=== PATIENT | female | born 1945 | race Caucasian/White ===

== ENCOUNTER 2017-02-16 17:34 | Emergency (ER) | payer MEDICARE, BC ==
[2017-02-16] MEDS ORDERED: SODIUM CHLORIDE 0.9% 1,000 ML IV STA (18:15)
--- NOTE | 2017-02-16 18:18 | ED ---
URI HPI - General Chief Complaint: Upper Respiratory Infection Stated Complaint: congestion Time Seen by Provider: 02/16/17 18:00 Source: patient, RN notes reviewed Mode of arrival: ambulatory Limitations: no limitations - History of Present Illness Initial Comments: This is a 71-year-old female who states she's had upper respiratory type symptoms with a persistent cough for the past 3 weeks denies any chest pain she has had occasional chest tightness. She is a former smoker who quit about 15- 20 years ago. She denies any overt fevers chills sweats he has a cough with some mail phlegm some exertional dyspnea. No other complaints at this time. He did not have any chest tightness at this time. MD Complaint: cough, nasal congestion, other - Related Data Home Medications Medication Instructions Recorded Confirmed Atorvastatin [Lipitor] 40 mg PO HS 02/16/17 02/16/17 Citalopram Hydrobromide [CeleXA] 20 mg PO HS 02/16/17 02/16/17 Dicyclomine [Bentyl] 20 mg PO TID PRN 02/16/17 02/16/17 Omeprazole [PriLOSEC] 20 mg PO HS 02/16/17 02/16/17 Pioglitazone HCl [Actos] 30 mg PO HS 02/16/17 02/16/17 Previous Rx's Medication Instructions Recorded Ipratropium/Albuterol Sulfate 2 puff INHALATION QID PRN #1 02/16/17 [Combivent Respimat Inhaler] inhaler Levofloxacin [Levaquin] 500 mg PO DAILY #9 tab 02/16/17 predniSONE 20 mg PO BID #10 tab 02/16/17 Allergies Allergy/AdvReac Type Severity Reaction Status Date / Time No Known Allergies Allergy Verified 02/16/17 18:38 Review of Systems ROS Statement: Those systems with pertinent positive or pertinent negative responses have been documented in the HPI. ROS Other: All systems not noted in ROS Statement are negative. Past Medical History Past Medical History: Diabetes Mellitus, Hyperlipidemia, Hypertension Additional Past Medical History / Comment(s): IBS History of Any Multi-Drug Resistant Organisms: None Reported Past Surgical History: Orthopedic Surgery, Tubal Ligation Past Psychological History: No Psychological Hx Reported Smoking Status: Never smoker Past Alcohol Use History: None Reported Past Drug Use History: None Reported General Exam - General Exam Comments Initial Comments: This is a well-developed well-nourished awake alert oriented 3 female Limitations: no limitations General appearance: alert, in no apparent distress Head exam: Present: atraumatic, normocephalic, normal inspection Eye exam: Present: normal appearance, PERRL, EOMI. Absent: scleral icterus, conjunctival injection, periorbital swelling ENT exam: Present: other (Bogginess and mucosa TMs are within normal limits) Neck exam: Present: normal inspection. Absent: tenderness, meningismus, lymphadenopathy Respiratory exam: Present: normal lung sounds bilaterally. Absent: respiratory distress, wheezes, rales, rhonchi, stridor Cardiovascular Exam: Present: regular rate, normal rhythm, normal heart sounds. Absent: systolic murmur, diastolic murmur, rubs, gallop, clicks GI/Abdominal exam: Present: soft, normal bowel sounds. Absent: distended, tenderness, guarding, rebound, rigid Extremities exam: Present: normal inspection, full ROM, normal capillary refill. Absent: tenderness, pedal edema, joint swelling, calf tenderness Back exam: Present: normal inspection Neurological exam: Present: alert, oriented X3, CN II-XII intact Psychiatric exam: Present: normal affect, normal mood Skin exam: Present: warm, dry, intact, normal color. 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 She does not want to be admitted today I believe she is a candidate for outpatient treatment. We did discuss her low magnesium and potassium levels. She'll be discharged home with her supplementation as well as oral antibiotics and inhaler. She is a follow-up with her doctor and return when necessary - Lab Data Result diagrams: 02/16/17 18:35 02/16/17 18:35 Lab Results 02/16/17 02/16/17 02/16/17 Range/Units 18:35 18:35 18:35 WBC 8.1 (3.8-10.6) k/uL RBC 4.37 (3.80-5.40) m/uL Hgb 13.3 (11.4-16.0) gm/dL Hct 40.8 (34.0-46.0) % MCV 93.3 (80.0-100.0) fL MCH 30.4 (25.0-35.0) pg MCHC 32.6 (31.0-37.0) g/dL RDW 12.9 (11.5-15.5) % Plt Count 359 (150-450) k/uL Neutrophils % 59 % Lymphocytes % 27 % Monocytes % 6 % Eosinophils % 4 % Basophils % 1 % Neutrophils # 4.8 (1.3-7.7) k/uL Lymphocytes # 2.2 (1.0-4.8) k/uL Monocytes # 0.5 (0-1.0) k/uL Eosinophils # 0.3 (0-0.7) k/uL Basophils # 0.0 (0-0.2) k/uL PT (9.0-12.0) sec INR (<1.1) APTT (22.0-30.0) sec D-Dimer (<0.60) mg/L FEU Sodium 138 (137-145) mmol/L Potassium 3.9 (3.5-5.1) mmol/L Chloride 102 (98-107) mmol/L Carbon Dioxide 26 (22-30) mmol/L Anion Gap 10 mmol/L BUN 15 (7-17) mg/dL Creatinine 0.85 (0.52-1.04) mg/dL Est GFR (MDRD) Af Amer >60 (>60 ml/min/1.73 sqM) Est GFR (MDRD) Non-Af >60 (>60 ml/min/1.73 sqM) Glucose 125 H (74-99) mg/dL Calcium 9.7 (8.4-10.2) mg/dL Magnesium 1.4 L (1.6-2.3) mg/dL Total Bilirubin 0.6 (0.2-1.3) mg/dL AST 24 (14-36) U/L ALT 26 (9-52) U/L Alkaline Phosphatase 86 (38-126) U/L Total Creatine Kinase 177 H (30-135) U/L CK-MB (CK-2) 2.5 H* (0.0-2.4) ng/mL CK-MB (CK-2) Rel Index 1.4 Troponin I <0.012 (0.000-0.034) ng/mL NT-Pro-B Natriuret Pep pg/mL Total Protein 7.3 (6.3-8.2) g/dL Albumin 4.3 (3.5-5.0) g/dL Influenza Type A RNA (Not Detectd) Influenza Type B (PCR) (Not Detectd) 02/16/17 02/16/17 02/16/17 Range/Units 18:35 18:35 18:35 WBC (3.8-10.6) k/uL RBC (3.80-5.40) m/uL Hgb (11.4-16.0) gm/dL Hct (34.0-46.0) % MCV (80.0-100.0) fL MCH (25.0-35.0) pg MCHC (31.0-37.0) g/dL RDW (11.5-15.5) % Plt Count (150-450) k/uL Neutrophils % % Lymphocytes % % Monocytes % % Eosinophils % % Basophils % % Neutrophils # (1.3-7.7) k/uL Lymphocytes # (1.0-4.8) k/uL Monocytes # (0-1.0) k/uL Eosinophils # (0-0.7) k/uL Basophils # (0-0.2) k/uL PT 10.3 (9.0-12.0) sec INR 1.0 (<1.1) APTT 23.5 (22.0-30.0) sec D-Dimer 0.55 (<0.60) mg/L FEU Sodium (137-145) mmol/L Potassium (3.5-5.1) mmol/L Chloride (98-107) mmol/L Carbon Dioxide (22-30) mmol/L Anion Gap mmol/L BUN (7-17) mg/dL Creatinine (0.52-1.04) mg/dL Est GFR (MDRD) Af Amer (>60 ml/min/1.73 sqM) Est GFR (MDRD) Non-Af (>60 ml/min/1.73 sqM) Glucose (74-99) mg/dL Calcium (8.4-10.2) mg/dL Magnesium (1.6-2.3) mg/dL Total Bilirubin (0.2-1.3) mg/dL AST (14-36) U/L ALT (9-52) U/L Alkaline Phosphatase (38-126) U/L Total Creatine Kinase (30-135) U/L CK-MB (CK-2) (0.0-2.4) ng/mL CK-MB (CK-2) Rel Index Troponin I (0.000-0.034) ng/mL NT-Pro-B Natriuret Pep 56 pg/mL Total Protein (6.3-8.2) g/dL Albumin (3.5-5.0) g/dL Influenza Type A RNA Not Detected (Not Detectd) Influenza Type B (PCR) Not Detected (Not Detectd) - EKG Data -: EKG Interpreted by Me EKG shows normal: sinus rhythm, axis, intervals, QRS complexes, ST-T waves (EKG shows a rate of 77 OR interval 178 QRS duration 80 daily since QTC of 370/[address]-T wave changes. This is normal. EKG.) Rate: normal - Radiology Data Radiology results: report reviewed (I did review the imaging and reports are is some evidence of lower lobe infiltrate.), image reviewed Disposition Clinical Impression: Pneumonia, Bronchospasm Disposition: HOME SELF-CARE Condition: Good Instructions: Community Acquired Pneumonia (ED) Prescriptions: Ipratropium/Albuterol Sulfate [Combivent Respimat Inhaler] 2 puff INHALATION QID PRN #1 inhaler PRN Reason: Dyspnea Levofloxacin [Levaquin] 500 mg PO DAILY #9 tab predniSONE 20 mg PO BID #10 tab
[2017-02-16 18:55] LABS: Basophils % (A) 1 %; CH 30.4; CHCM 32.8; Eosinophils # (A) 0.3 k/uL (0-0.7); Eosinophils % (A) 4 %; HCT 40.8 % (34.0-46.0); HDW 2.26; HGB 13.3 gm/dL (11.4-16.0); Luc # (Auto) 0.21; Luc % (Auto) 3; Lymphocytes # (A) 2.2 k/uL (1.0-4.8); Lymphocytes % (A) 27 %; MCH 30.4 pg (25.0-35.0); MCHC 32.6 g/dL (31.0-37.0); MCV 93.3 fL (80.0-100.0); Monocytes # (A) 0.5 k/uL (0-1.0); Monocytes % (A) 6 %; Neutrophils # (A) 4.8 k/uL (1.3-7.7); Neutrophils % (A) 59 %; RBC 4.37 m/uL (3.80-5.40); RDW 12.9 % (11.5-15.5); WBC 8.1 k/uL (3.8-10.6); WBC (Perox) 8.08
--- NOTE | 2017-02-16 19:02 | XR ---
EXAMINATION TYPE: XR chest 2V DATE OF EXAM: 02/16/2017 6:57 PM COMPARISON: 12/20/2008 INDICATION: Difficulty breathing cough and congestion TECHNIQUE: Single frontal view of the chest is obtained. FINDINGS: The heart size is normal. The pulmonary vasculature is normal. Mild bibasilar infiltrates are present. Correlate for subsegmental atelectasis. Developing pneumonia could be considered. IMPRESSION: 1. Mild bibasilar infiltrates. Correlate for atelectasis or developing pneumonia
[2017-02-16 19:04] LABS: Partial Thromboplastin Time 23.5 sec (22.0-30.0); Prothrombin Time 10.3 sec (9.0-12.0)
[2017-02-16 19:08] LABS: ALT 26 U/L (9-52); AST 24 U/L (14-36); Alkaline Phosphatase 86 U/L (38-126); Anion Gap 10 mmol/L; Blood Urea Nitrogen 15 mg/dL (7-17); Calcium 9.7 mg/dL (8.4-10.2); Carbon Dioxide 26 mmol/L (22-30); Chloride 102 mmol/L (98-107); Glucose 125 mg/dL (74-99); Magnesium 1.4 mg/dL (1.6-2.3); Non-African American GFR(MDRD) >60 (>60 ml/min/1.73 sqM); Potassium 3.9 mmol/L (3.5-5.1); Sodium 138 mmol/L (137-145); Total Bilirubin 0.6 mg/dL (0.2-1.3); Total Protein 7.3 g/dL (6.3-8.2)
[2017-02-16 19:11] LABS: Creatine Kinase 177 U/L (30-135)
[2017-02-16 19:24] LABS: Troponin I <0.012 ng/mL (0.000-0.034)
[2017-02-16 19:30] LABS: Creatine Kinase MB 2.5 ng/mL (0.0-2.4)
[2017-02-16 20:02] VITALS: BP 143/64; PULSE 88; RESP 18; TEMP 99.2
[2017-02-16] MEDS ORDERED: LEVOFLOXACIN 750 MG TAB PO STA (20:23)
[2017-02-16] MEDS ORDERED: POTASSIUM CHLORIDE ER 20 MEQ TAB.ER PO STA (20:23)
== END 2017-02-16 20:50 | disposition home or self-care (01) ==
LOC: EC 17:34
DX: J18.9 Pneumonia, unspecified organism (principal); J98.01 Acute bronchospasm; E11.9 Type 2 diabetes mellitus without complications; E78.5 Hyperlipidemia, unspecified; K58.9 Irritable bowel syndrome, unspecified; I10 Essential (primary) hypertension; Z79.84 Long term (current) use of oral hypoglycemic drugs; Z79.899 Other long term (current) drug therapy
CPT/HCPCS: 36415; 71020; 80053; 82550; 82553; 83735; 83880; 84484; 85025; 85379; 85610; 85730; 87502; 93005; 96360; 96361; 99284

== ENCOUNTER 2017-02-27 16:32 | Emergency (ER) | payer MEDICARE, BC ==
[2017-02-27] MEDS ORDERED: NITROGLYCERIN OINT 1 INCH/GM PACKET TOPICAL STA (17:29)
[2017-02-27] MEDS ORDERED: ASPIRIN 81 MG CHEW PO STA (17:29)
[2017-02-27] MEDS ORDERED: KETOROLAC 60 MG/2 ML VIAL IVP STA ×2 (17:30→19:22)
--- NOTE | 2017-02-27 17:38 | ED ---
General Adult HPI - General Chief complaint: Chest Pain Stated complaint: chest pain Time Seen by Provider: 02/27/17 17:00 Source: patient, RN notes reviewed Mode of arrival: wheelchair Limitations: no limitations - History of Present Illness Initial comments: This is a 71-year-old female comes into the emergency department stating that she woke up yesterday with right-sided chest pain which radiated to her back. Patient states the pain was worse with deep inspiration or movement of her right arm. Patient states if she lies still in bed and just breathes normally she has no pain whatsoever. Patient denies any shortness of breath. Patient denies any fever or chills per patient denies any recent cough. Patient denies any calf pain. Patient denies any recent trips or travel. Patient states she has some swelling in her right leg more than normal. Patient denies any palpitations per patient denies abdominal pain patient denies nausea vomiting or diarrhea. Patient denies any lightheadedness dizziness or near syncopal episode. - Related Data Home Medications Medication Instructions Recorded Confirmed Atorvastatin [Lipitor] 40 mg PO HS 02/16/17 02/27/17 Citalopram Hydrobromide [CeleXA] 20 mg PO HS 02/16/17 02/27/17 Dicyclomine [Bentyl] 20 mg PO TID PRN 02/16/17 02/27/17 Omeprazole [PriLOSEC] 20 mg PO HS 02/16/17 02/27/17 Pioglitazone HCl [Actos] 30 mg PO HS 02/16/17 02/27/17 Allergies Allergy/AdvReac Type Severity Reaction Status Date / Time No Known Allergies Allergy Verified 02/27/17 17:48 Review of Systems ROS Statement: Those systems with pertinent positive or pertinent negative responses have been documented in the HPI. ROS Other: All systems not noted in ROS Statement are negative. Past Medical History Past Medical History: Diabetes Mellitus, Hyperlipidemia, Hypertension Additional Past Medical History / Comment(s): IBS History of Any Multi-Drug Resistant Organisms: None Reported Past Surgical History: Orthopedic Surgery, Tubal Ligation Past Psychological History: No Psychological Hx Reported Smoking Status: Never smoker Past Alcohol Use History: None Reported Past Drug Use History: None Reported General Exam - General Exam Comments Initial Comments: GENERAL: Patient is well-developed and well-nourished. Patient is nontoxic and well- hydrated and is in mild distress. ENT: Neck is soft and supple. No significant lymphadenopathy is noted. Oropharynx is clear. Moist mucous membranes. Neck has full range of motion without eliciting any pain. EYES: The sclera were anicteric and conjunctiva were pink and moist. Extraocular movements were intact and pupils were equal round and reactive to light. Eyelids were unremarkable. PULMONARY: Unlabored respirations. Good breath sounds bilaterally. No audible rales rhonchi or wheezing was noted. CARDIOVASCULAR: There is a regular rate and rhythm without any murmurs gallops or rubs. ABDOMEN: Soft and nontender with normal bowel sounds. No palpable organomegaly was noted. There is no palpable pulsatile mass. SKIN: Skin is clear with no lesions or rashes and otherwise unremarkable. NEUROLOGIC: Patient is alert and oriented x3. Cranial nerves II through XII are grossly intact. Motor and sensory are also intact. Normal speech, volume and content. Symmetrical smile. MUSCULOSKELETAL: Normal extremities with adequate strength and full range of motion. No lower extremity swelling or edema. No calf tenderness. LYMPHATICS: No significant lymphadenopathy is noted PSYCHIATRIC: Normal psychiatric evaluation. Normal interpersonal interactions appears functionally intact in deals appropriately with others. No signs of depression. No signs of anxiety. Limitations: no limitations Course Vital Signs 02/27/17 02/27/17 02/27/17 16:35 17:00 18:14 Temperature 100.6 F H 99.9 F H Pulse Rate 94 89 83 Respiratory 20 16 16 Rate Blood Pressure 156/74 116/72 151/65 O2 Sat by Pulse 96 100 98 Oximetry 02/27/17 02/27/17 19:01 19:17 Temperature Pulse Rate 93 89 Respiratory 16 16 Rate Blood Pressure 136/64 136/64 O2 Sat by Pulse 99 98 Oximetry Medical Decision Making - Medical Decision Making EKG shows normal sinus rhythm at 93 bpm NM interval is 178 QRS is 68 QT interval 340 QTC is 422 per patient's EKG shows no ST segment elevation or depression or T wave abnormalities are noted. chest x-ray and CAT scan showed no acute abnormality. Patient received Toradol felt considerably better. - Lab Data Result diagrams: 02/27/17 17:00 02/27/17 17:00 Lab Results 02/27/17 02/27/17 02/27/17 Range/Units 17:00 17:00 17:00 WBC 9.4 (3.8-10.6) k/uL RBC 4.43 (3.80-5.40) m/uL Hgb 13.7 (11.4-16.0) gm/dL Hct 40.5 (34.0-46.0) % MCV 91.5 (80.0-100.0) fL MCH 30.9 (25.0-35.0) pg MCHC 33.8 (31.0-37.0) g/dL RDW 13.0 (11.5-15.5) % Plt Count 274 (150-450) k/uL Neutrophils % 74 % Lymphocytes % 14 % Monocytes % 9 % Eosinophils % 1 % Basophils % 0 % Neutrophils # 6.9 (1.3-7.7) k/uL Lymphocytes # 1.3 (1.0-4.8) k/uL Monocytes # 0.8 (0-1.0) k/uL Eosinophils # 0.1 (0-0.7) k/uL Basophils # 0.0 (0-0.2) k/uL PT (9.0-12.0) sec INR (<1.1) APTT (22.0-30.0) sec D-Dimer (<0.60) mg/L FEU Sodium 137 (137-145) mmol/L Potassium 4.3 (3.5-5.1) mmol/L Chloride 104 (98-107) mmol/L Carbon Dioxide 21 L (22-30) mmol/L Anion Gap 12 mmol/L BUN 15 (7-17) mg/dL Creatinine 0.70 (0.52-1.04) mg/dL Est GFR (MDRD) Af Amer >60 (>60 ml/min/1.73 sqM) Est GFR (MDRD) Non-Af >60 (>60 ml/min/1.73 sqM) Glucose 159 H (74-99) mg/dL Calcium 9.6 (8.4-10.2) mg/dL Magnesium 1.6 (1.6-2.3) mg/dL Total Bilirubin 0.6 (0.2-1.3) mg/dL AST 19 (14-36) U/L ALT 25 (9-52) U/L Alkaline Phosphatase 97 (38-126) U/L Total Creatine Kinase 107 (30-135) U/L CK-MB (CK-2) 1.0 (0.0-2.4) ng/mL CK-MB (CK-2) Rel Index 0.9 Troponin I <0.012 (0.000-0.034) ng/mL Total Protein 7.0 (6.3-8.2) g/dL Albumin 4.1 (3.5-5.0) g/dL 02/27/17 02/27/17 Range/Units 17:00 17:00 WBC (3.8-10.6) k/uL RBC (3.80-5.40) m/uL Hgb (11.4-16.0) gm/dL Hct (34.0-46.0) % MCV (80.0-100.0) fL MCH (25.0-35.0) pg MCHC (31.0-37.0) g/dL RDW (11.5-15.5) % Plt Count (150-450) k/uL Neutrophils % % Lymphocytes % % Monocytes % % Eosinophils % % Basophils % % Neutrophils # (1.3-7.7) k/uL Lymphocytes # (1.0-4.8) k/uL Monocytes # (0-1.0) k/uL Eosinophils # (0-0.7) k/uL Basophils # (0-0.2) k/uL PT 10.1 (9.0-12.0) sec INR 1.0 (<1.1) APTT 20.8 L (22.0-30.0) sec D-Dimer 0.77 H (<0.60) mg/L FEU Sodium (137-145) mmol/L Potassium (3.5-5.1) mmol/L Chloride (98-107) mmol/L Carbon Dioxide (22-30) mmol/L Anion Gap mmol/L BUN (7-17) mg/dL Creatinine (0.52-1.04) mg/dL Est GFR (MDRD) Af Amer (>60 ml/min/1.73 sqM) Est GFR (MDRD) Non-Af (>60 ml/min/1.73 sqM) Glucose (74-99) mg/dL Calcium (8.4-10.2) mg/dL Magnesium (1.6-2.3) mg/dL Total Bilirubin (0.2-1.3) mg/dL AST (14-36) U/L ALT (9-52) U/L Alkaline Phosphatase (38-126) U/L Total Creatine Kinase (30-135) U/L CK-MB (CK-2) (0.0-2.4) ng/mL CK-MB (CK-2) Rel Index Troponin I (0.000-0.034) ng/mL Total Protein (6.3-8.2) g/dL Albumin (3.5-5.0) g/dL Disposition Clinical Impression: Pleurisy Disposition: HOME SELF-CARE Instructions: Pleurisy (ED) Referrals: Jeri Cancino III, MD [Primary Care Provider] - 1-2 days Time of Disposition: 19:29
[2017-02-27 17:47] LABS: Basophils % (A) 0 %; CHCM 32.9; Eosinophils # (A) 0.1 k/uL (0-0.7); Eosinophils % (A) 1 %; HCT 40.5 % (34.0-46.0); HDW 2.18; HGB 13.7 gm/dL (11.4-16.0); Luc # (Auto) 0.14; Luc % (Auto) 2; Lymphocytes # (A) 1.3 k/uL (1.0-4.8); Lymphocytes % (A) 14 %; MCH 30.9 pg (25.0-35.0); MCHC 33.8 g/dL (31.0-37.0); MCV 91.5 fL (80.0-100.0); Mean Platelet Volume 8.2; Monocytes # (A) 0.8 k/uL (0-1.0); Monocytes % (A) 9 %; Neutrophils # (A) 6.9 k/uL (1.3-7.7); Neutrophils % (A) 74 %; RBC 4.43 m/uL (3.80-5.40); WBC 9.4 k/uL (3.8-10.6); WBC (Perox) 9.33
[2017-02-27 17:50] LABS: Prothrombin Time 10.1 sec (9.0-12.0)
--- NOTE | 2017-02-27 17:53 | XR ---
EXAMINATION TYPE: XR chest 2V DATE OF EXAM: 02/27/2017 5:47 PM COMPARISON: 02/16/2017 HISTORY: Shortness of breath TECHNIQUE: Frontal and lateral views of the chest are obtained. FINDINGS: Scattered senescent parenchymal changes noted. Hyperinflation compatible with COPD. Patchy density lower lobes may reflect developing infiltrate. Overall no change from prior study. Heart size is stable. Mediastinal structures are stable and grossly unremarkable. No evidence for hilar prominence. Degenerative changes dorsal spine. IMPRESSION: 1. Patchy density lower lobes may reflect developing infiltrate. Overall no change from prior study.
[2017-02-27 17:58] LABS: Partial Thromboplastin Time 20.8 sec (22.0-30.0)
[2017-02-27 17:59] LABS: ALT 25 U/L (9-52); AST 19 U/L (14-36); Alkaline Phosphatase 97 U/L (38-126); Anion Gap 12 mmol/L; Blood Urea Nitrogen 15 mg/dL (7-17); Calcium 9.6 mg/dL (8.4-10.2); Carbon Dioxide 21 mmol/L (22-30); Chloride 104 mmol/L (98-107); Glucose 159 mg/dL (74-99); Magnesium 1.6 mg/dL (1.6-2.3); Non-African American GFR(MDRD) >60 (>60 ml/min/1.73 sqM); Potassium 4.3 mmol/L (3.5-5.1); Sodium 137 mmol/L (137-145); Total Bilirubin 0.6 mg/dL (0.2-1.3)
[2017-02-27 18:04] LABS: Creatine Kinase 107 U/L (30-135)
[2017-02-27] MEDS ORDERED: RX INFO: IV CONTRAST WAS GIVEN 1 EACH MISC MISCELLANE PRN (18:11)
[2017-02-27] MEDS ORDERED: ACETAMINOPHEN TAB 325 MG TAB PO STA (18:12)
[2017-02-27 18:15] LABS: Troponin I <0.012 ng/mL (0.000-0.034)
--- NOTE | 2017-02-27 18:47 | CT ---
EXAMINATION TYPE: CT chest angio for PE DATE OF EXAM: 02/27/2017 6:34 PM COMPARISON: NONE HISTORY: Right sided chest pain and Shortness of breath CT DLP: 663 mGycm CONTRAST: CT chest with contrast and 3D reconstruction with MIP imaging is performed with IV Contrast, patient injected with 100 mL of Omnipaque 350. Contrast-enhanced CT of the chest was performed through the course of the pulmonary arteries with doris g and mediastinal window settings submitted. 3D reconstruction with MIP imaging was also performed. PULMONARY ARTERIES: The pulmonary arteries and their major tributaries are patent. I do not see indy dence for sizable filling defect to suggest pulmonary embolic process. LUNGS: The lungs are clear and free of infiltrate. Mild linear atelectasis and/or parenchymal scar. N o pulmonary nodule or mass is detected. No pleural effusion. MEDIASTINUM: Thoracic aorta is of normal caliber . The heart is not enlarged. No evidence for media stinal mass. No mediastinal lymph nodes greater than 1cm. HILAR STRUCTURES: No evidence for mass. No hilar lymph nodes greater than 1 cm. UPPER ABDOMEN: Uncomplicated cholelithiasis. Moderate fixed hiatal hernia. IMPRESSION: 1. No evidence for Pulmonary embolism at this time.
[2017-02-27 20:06] VITALS: BP 159/83; PULSE 86; RESP 18; TEMP 99
== END 2017-02-27 20:18 | disposition home or self-care (01) ==
LOC: EC 16:32
DX: R09.1 Pleurisy (principal); R07.9 Chest pain, unspecified; M79.89 Other specified soft tissue disorders; I10 Essential (primary) hypertension; E11.9 Type 2 diabetes mellitus without complications; E78.5 Hyperlipidemia, unspecified; K58.9 Irritable bowel syndrome, unspecified; Z79.84 Long term (current) use of oral hypoglycemic drugs; Z79.899 Other long term (current) drug therapy; Z53.8 Procedure and treatment not carried out for other reasons
CPT/HCPCS: 36415; 85379; 80053; 82550; 82553; 83735; 84484; 85025; 85610; 85730; 71020; 71275; 99285; 96374; Q9967; J1885; 93005

== ENCOUNTER → 2017-03-15 | Outpatient (CLI) | payer MEDICARE, BC ==
--- NOTE | 2017-03-16 05:48 | ECHOF ---
Referral Reason:R01.1 Cardiac murmur MEASUREMENTS -------- HEIGHT: 157.5 cm WEIGHT: 90.7 kg BP: IVSd: 1.3 cm (0.6 - 1.1) LVIDd: 3.3 cm (3.9 - 5.3) LVPWd: 1.4 cm (0.6 - 1.1) IVSs: 1.9 cm LVIDs: 0.9 cm LVPWs: 1.8 cm Ao Diam: 3.1 cm (2.0 - 3.7) AV Cusp: 1.5 cm (1.5 - 2.6) LA Diam: 3.7 cm (2.7 - 3.8) MV EXCURSION: 12.842 mm (> 18.000) MV EF SLOPE: 77 mm/s (70 - 150) EPSS: 0.2 cm MV E Ken: 0.94 m/s MV DecT: 216 ms MV A Ken: 1.20 m/s MV E/A Ratio: 0.78 AR PHT: 175 ms RAP: 5.00 mmHg RVSP: 29.16 mmHg FINDINGS -------- Sinus rhythm. This was a technically good study. There is mild concentric left ventricular hypertrophy. Overall left ventricular systolic function is normal with, an EF between 55 - 60 %. The right ventricle is normal in size and function. The left atrium is normal in size. The right atrium is normal in size. Aortic valve is trileaflet and is mildly thickened. There is mild to moderate aortic valve sclerosis. Trace amount of aortic regurgitation. Mild mitral regurgitation is present. Mild tricuspid regurgitation present. The right ventricular systolic pressure, as measured by Doppler, is 29.16mmHg. Pulmonic valve appears structurally normal. The aortic root size is normal. The pericardium is normal. CONCLUSIONS -------- 1. Sinus rhythm. 2. Mild mitral regurgitation is present. 3. Mild tricuspid regurgitation present. 4. The right ventricular systolic pressure, as measured by Doppler, is 29.16mmHg. 5. Pulmonic valve appears structurally normal. 6. The aortic root size is normal. 7. The pericardium is normal. 8. This was a technically good study. 9. There is mild concentric left ventricular hypertrophy. 10. Overall left ventricular systolic function is normal with, an EF between 55 - 60 %. 11. The right ventricle is normal in size and function. 12. The left atrium is normal in size. 13. The right atrium is normal in size. 14. Aortic valve is trileaflet and is mildly thickened. 15. Trace amount of aortic regurgitation. CLIP BOLTER AND WRAPPER: Leonela Cardona RDCS
--- NOTE | 2017-03-18 09:38 | MM ---
Reason for exam: screening (asymptomatic). Last mammogram was performed 8 years and 2 months ago. History: Patient is postmenopausal. Physical Findings: A clinical breast exam by your physician is recommended on an annual basis and results should be correlated with mammographic findings. MG 3D Screening Mammo W/Cad Bilateral CC and MLO view(s) were taken. Prior study comparison: January 11, 2009, bilateral digital screening mammogram. There are scattered fibroglandular densities. Asymmetric breast tissue in the left central stable. There is no discrete abnormality. ASSESSMENT: Negative, BI-RAD 1 RECOMMENDATION: Routine screening mammogram of both breasts in 1 year.
== END | disposition home or self-care (01) ==
LOC: RADMAMWWP 12:42
PROVIDERS: ATTEND Family Medicine
DX: Z12.31 Encounter for screening mammogram for malignant neoplasm of breast (principal); I08.3 Combined rheumatic disorders of mitral, aortic and tricuspid valves
CPT/HCPCS: 93306; 77063; G0202

== ENCOUNTER → 2020-04-06 | Outpatient (CLI) | payer MEDICARE, BC ==
--- NOTE | 2020-04-07 07:22 | ECHOF ---
Referral Reason:I10, R01.1 MEASUREMENTS -------- HEIGHT: 154.9 cm WEIGHT: 90.7 kg BP: 130/60 RVIDd: 3.1 cm (< 3.3) IVSd: 1.1 cm (0.6 - 1.1) LVIDd: 4.2 cm (3.9 - 5.3) LVPWd: 1.1 cm (0.6 - 1.1) IVSs: 1.4 cm LVIDs: 3.0 cm LVPWs: 1.6 cm LA Diam: 3.4 cm (2.7 - 3.8) LAESV Index (A-L): 22.32 ml/m Ao Diam: 2.7 cm (2.0 - 3.7) AV Cusp: 1.7 cm (1.5 - 2.6) MV EXCURSION: 12.865 mm (> 18.000) MV EF SLOPE: 66 mm/s (70 - 150) EPSS: 0.5 cm MV E Ken: 0.91 m/s MV DecT: 316 ms MV A Ken: 1.16 m/s MV E/A Ratio: 0.79 AV maxP.54 mmHg AV meanP.91 mmHg RAP: 15.00 mmHg RVSP: 48.55 mmHg FINDINGS -------- Sinus rhythm. This was a technically adequate study. The left ventricular size is normal. There is borderline concentric left ventricular hypertrophy. Overall left ventricular systolic function is normal with, an EF between 60 - 65 %. The right ventricle is normal in size. Normal LA size by volume 22+/-6 ml/m2. The right atrium is normal in size. Interatrial and interventricular septum intact. There is mild aortic valve sclerosis. There is mild aortic regurgitation. There is mild aortic st enosis present. Peak/mean gradient across the Aortic Valve is 26.54mmHg / 13.91mmHg. The mitral valve is normal. Mild tricuspid regurgitation present. There is moderate pulmonary hypertension. The right ventric ular systolic pressure, as measured by Doppler, is 48.55mmHg. There is no pulmonic regurgitation present. The aortic root size is normal. Normal inferior vena cava with less than 50% inspiratory collapse consistent with estimated right atr ial pressure of 15 mmHg. There is no pericardial effusion. CONCLUSIONS -------- 1. Sinus rhythm. 2. This was a technically adequate study. 3. The left ventricular size is normal. 4. There is borderline concentric left ventricular hypertrophy. 5. Overall left ventricular systolic function is normal with, an EF between 60 - 65 %. 6. The right ventricle is normal in size. 7. Normal LA size by volume 22+/-6 ml/m2. 8. The right atrium is normal in size. 9. Interatrial and interventricular septum intact. 10. There is mild aortic valve sclerosis. 11. There is mild aortic regurgitation. 12. There is mild aortic stenosis present. 13. Peak/mean gradient across the Aortic Valve is 26.54mmHg / 13.91mmHg. 14. The mitral valve is normal. 15. Mild tricuspid regurgitation present. 16. There is moderate pulmonary hypertension. 17. The right ventricular systolic pressure, as measured by Doppler, is 48.55mmHg. 18. There is no pulmonic regurgitation present. 19. The aortic root size is normal. 20. Normal inferior vena cava with less than 50% inspiratory collapse consistent with estimated right atrial pressure of 15 mmHg. 21. There is no pericardial effusion. TONGUE BINDER: FRANC Dumont
--- NOTE | 2020-04-07 07:43 | US ---
EXAMINATION TYPE: US carotid duplex BILAT DATE OF EXAM: 04/06/2020 COMPARISON: NONE CLINICAL HISTORY: E11.9 TYPE 2 DIABETES,R01.1 CARDIAC MURMUR,I10 HTN. Bruit EXAM MEASUREMENTS: RIGHT: Peak Systolic Velocity (PSV) cm/sec ----- Right CCA: 112.4 ----- Right ICA: 95.3 ----- Right ECA: 80.1 ICA/CCA ratio: 0.9 RIGHT: End Diastole cm/sec ----- Right CCA: 25.7 ----- Right ICA: 25.2 ----- Right ECA: 0 LEFT: Peak Systolic Velocity (PSV) cm/sec ----- Left CCA: 94.7 ----- Left ICA: 101.1 ----- Left ECA: 147.8 ICA/CCA ratio: 1.1 LEFT: End Diastole cm/sec ----- Left CCA: 20.4 ----- Left ICA: 28.4 ----- Left ECA: 0 VERTEBRALS (direction of flow): Right Vertebral: Antegrade Left Vertebral: Antegrade Rhythm: Normal No significant stenosis seen IMPRESSION: 1. No significant flow-limiting stenosis bilateral carotid bifurcations Criteria for Assigning % of Stenosis / Diameter reduction (Estimation based on the indirect measurements of the internal carotid artery velocities (ICA PSV). 1. Normal (no stenosis)=ICA PSV < 125 cm/s: ratio < 2.0: ICA EDV<40 cm/s. 2. Less than 50% stenosis=ICA PSV < 125 cm/s: ratio < 2.0: ICA EDV<40 cm/s. 3. 50 to 69% stenosis=ICA PSV of 125 to 230 cm/s: ration 2.0 ? 4.0: ICA EDV 40-100 cm/s. 4. Greater than 70% stenosis to near occlusion= ICA PSV > 230 cm/s: ratio > 4.0: ICA EDV > 100 cm/s. 5. Near occlusion= ICA PSV velocities may be low or undetectable: variable ratio and ICA EDV. 6. Total occlusion=unable to detect flow.
== END | disposition home or self-care (01) ==
LOC: RADECHMAIN 12:17
PROVIDERS: ATTEND Family Medicine
DX: I51.7 Cardiomegaly (principal); I08.2 Rheumatic disorders of both aortic and tricuspid valves; I27.20 Pulmonary hypertension, unspecified; E11.9 Type 2 diabetes mellitus without complications; E78.00 Pure hypercholesterolemia, unspecified; I10 Essential (primary) hypertension
CPT/HCPCS: 93306; 93880

== ENCOUNTER → 2020-04-29 | Outpatient (CLI) | payer MEDICARE, BC ==
--- NOTE | 2020-04-30 00:24 | MR ---
EXAMINATION TYPE: MR cervical spine wo con DATE OF EXAM: 04/29/2020 COMPARISON: None HISTORY: Neck pain x 1 year Multiplanar multiecho imaging of the cervical spine was performed without contrast. Vertebra have normal alignment. There is slight narrowing of the disc spaces at C5-6 and C6-7. There is minimal spurring of the endplates. There is no evidence of cervical bony spinal stenosis. There is small posterior disc bulging from C4 to C7. There is developmentally adequate spinal canal. Canal me asures 9.5 mm at C5-6. Cervical spinal cord has fairly normal signal pattern. There is no edema. The brainstem appears intact. Posterior elements are intact. There is mild cervical hypertrophic facet ar thropathy. Prevertebral soft tissues are intact. IMPRESSION: Minor degenerative disc changes in the lower cervical spine. No fracture. No evidence of spinal stenosis.
== END | disposition home or self-care (01) ==
LOC: RADMRIMAIN 18:10
PROVIDERS: ATTEND Otolaryngology
DX: M47.812 Spondylosis without myelopathy or radiculopathy, cervical region (principal)
CPT/HCPCS: 72141

== ENCOUNTER → 2020-07-22 | Outpatient (CLI) | payer MEDICARE, BC | END | disposition home or self-care (01) | LOC: LABWHC1 10:05 | PROVIDERS: ATTEND Family Medicine | DX: R05 Cough (principal); Z20.828 Contact with and (suspected) exposure to other viral communicable diseases | CPT/HCPCS: U0003; C9803 ==

== ENCOUNTER 2020-08-18 06:05 | Day surgery (SDC) | payer MEDICARE, BC ==
[2020-08-16 13:28] VITALS: BMI 36.6
[~2020-08-18 06:05] MED LIST: ALPRAZolam 0.25 MG TAB PO PRN; ALPRAZolam 0.5 MG TAB PO PRN; ASPIRIN 325 MG TAB PO STA; NITROGLYCERIN SL TABS 0.4 MG TAB SUBLINGUAL PRN; SODIUM CHLORIDE 0.9% 1,000 ML in EMPTY BAG 1 BAG IV ONE
[2020-08-18] MEDS ORDERED: SODIUM CHLORIDE 0.9% 1,000 ML IV ONE (06:25)
[2020-08-18 06:35] LABS: Glucose,Whole Blood 131 mg/dL (75-99)
[2020-08-18 06:41] LABS: Basophils % (A) 1 %; Eosinophils # (A) 0.3 k/uL (0-0.7); Eosinophils % (A) 5 %; HCT 38.8 % (34.0-46.0); HGB 12.3 gm/dL (11.4-16.0); Lymphocytes # (A) 1.8 k/uL (1.0-4.8); Lymphocytes % (A) 31 %; MCH 29.7 pg (25.0-35.0); MCHC 31.8 g/dL (31.0-37.0); MCV 93.1 fL (80.0-100.0); Mean Platelet Volume 7.1; Monocytes # (A) 0.5 k/uL (0-1.0); Monocytes % (A) 9 %; Neutrophils % (A) 52 %; Platelet Count 376 k/uL (150-450); RBC 4.16 m/uL (3.80-5.40); RDW 13.3 % (11.5-15.5); WBC 5.8 k/uL (3.8-10.6)
[2020-08-18 06:49] LABS: Calcium 9.3 mg/dL (8.4-10.2); Potassium 4.5 mmol/L (3.5-5.1)
[2020-08-18] MEDS ORDERED: LIDOCAINE 1% INJ 10MG/ML (20 ML MDV) ONE (07:07)
[2020-08-18] MEDS ORDERED: HEPARIN SODIUM 1,000 UN/ML (10ML VL) ONE (07:07)
[2020-08-18] MEDS ORDERED: fentaNYL (PF) 50 MCG/ML 2 ML AMP ONE (07:07)
[2020-08-18] MEDS ORDERED: VERAPAMIL 2.5 MG/ML 2 ML AMP ONE (07:07)
[2020-08-18] MEDS ORDERED: fentaNYL (PF) 50 MCG/ML 2 ML AMP IV ONE (07:28)
[2020-08-18] MEDS ORDERED: LIDOCAINE 1% INJ 10MG/ML (20 ML MDV) SQ ONE (07:34)
[2020-08-18] MEDS ORDERED: VERAPAMIL SYRINGE (5 MG/10 ML) INTRAARTER ONE (07:37)
[2020-08-18] MEDS ORDERED: IOPAMIDOL-370 125ML BTL INJ ONE (07:46)
[2020-08-18] MEDS ORDERED: RX INFO: IV CONTRAST WAS GIVEN 1 EACH MISC MISCELLANE PRN (08:02)
[2020-08-18] MEDS ORDERED: SODIUM CHLORIDE 0.9% 1,000 ML IV SCH (08:15)
[2020-08-18 08:40] VITALS: RESP 16; TEMP 98.4
[2020-08-18] MEDS ORDERED: ASPIRIN 81 MG PO SCH (09:00)
--- NOTE | 2020-08-18 09:31 | CC ---
CARDIAC CATHETERIZATION REPORT Mrs. Palmer is a 74-year-old female with known history of hypertension, hyperlipidemia, diabetes mellitus, who has been complaining of dyspnea on exertion. She underwent a myocardial perfusion imaging that revealed an anterior wall reversible defect. In view of that, recommendation made regarding cardiac catheterization. The procedures, risks, and complications were discussed with the patient who is in full understanding and agreement. PROCEDURE: Patient was brought to laboratory associate in a fasting semi-sedated state after receiving fentanyl and Benadryl and achieving moderate conscious sedated state. Using Xylocaine anesthesia and Seldinger technique, a 6-[place] sheath was introduced in the right radial artery. Selective right and left coronary angiography performed using 5-[place] 3.5 bend right and left Marcos catheter. Multiple views of the coronary artery including hemiaxial views were obtained. Following that, a 5-[place] tight pigtail catheter was introduced in the left ventricle and pressures were calculated. Following that, catheter and sheath were removed. Hemostasis was obtained and deployment of TR band. There was no immediate complication. Patient is returned to her room in stable condition. Of note, the patient received a 5000 units of intravenous heparin as well as intra-arterial verapamil. FINDINGS: FLUOROSCOPY: There is calcification involving the left anterior descending artery proximally as well as the right coronary artery. LEFT MAIN: This is a large-sized vessel, bifurcating into left circumflex, left anterior descending artery. Left main artery has no evidence of high-grade stenosis. LEFT ANTERIOR DESCENDING ARTERY: This is a large-sized vessel, reaching toward the apex with a wraparound apex segment, calcified in the proximal mid segment, giving rise to a moderately-sized diagonal branch proximally. The left anterior descending artery has mild intimal disease proximally of 10% to 20% without any evidence of high-grade stenosis. LEFT CIRCUMFLEX: This is a nondominant vessel, giving rise to 3 obtuse marginal branches. The left circumflex has mild intimal disease proximally of 20%. There is no evidence of high-grade stenosis. RIGHT CORONARY ARTERY: This is a dominant vessel, large in caliber, bifurcating into PDA and posterolateral segment and branches. The right coronary artery in the proximal segment has 20% plaque without any evidence of high-grade stenosis. LEFT VENTRICULOGRAM: Left ventriculogram was not performed. HEMODYNAMICS: There was no gradient across the aortic valve. The left ventricular end- diastolic pressure was 16-20 mmHg. CONCLUSION: 1. Calcified coronary arteries. 2. Mild triple-vessel coronary disease. RECOMMENDATION: In view of finding anatomy, I recommend continue medical therapy with aggressive risk modifications being initiated. Those findings and recommendation were discussed with the patient and her family and they are in full understanding and agreement. Duration of sedation was 17 minutes. SARA / HOMA: [id number] /
--- NOTE | 2020-08-18 09:36 | LTR ---
DATE OF SERVICE: 08/18/2020 RE: Magalis Palmer Dear Dr. Corrales; I had the pleasure to perform cardiac catheterization on Mrs. Palmer a [facility] on August 18, 2020 and a full copy of the procedure note will be forwarded to you. In brief, she was found to have mild triple-vessel coronary artery disease with calcified coronary arteries and based on those findings, I recommend to continue medical therapy with aggressive risk modification that has been initiated. Thank you again for allowing me to participate in this patient's personal care. Please feel free to call for any questions. Sincerely yours, MD DAHIANA VillarealL / ALINEN: [phone] / [email or web address]
[2020-08-18 11:31] VITALS: BP 132/78; PULSE 64
[2020-08-18] MEDS ORDERED: CITALOPRAM HYDROBROMIDE 20 MG TAB PO SCH (21:00)
[2020-08-18] MEDS ORDERED: ATORVASTATIN 40 MG TAB PO SCH (21:00)
[2020-08-18] MEDS ORDERED: lisinopriL 10 MG TAB PO SCH (21:00)
[2020-08-18] MEDS ORDERED: NON FORMULARY DRUG (Omeprazole 20 MG Capsule.Dr) PO SCH (21:00)
[2020-08-18] MEDS ORDERED: PIOGLITAZONE 30 MG TAB PO SCH (21:00)
== END 2020-08-18 11:31 | disposition home or self-care (01) ==
LOC: CATHCVL 06:05
PROVIDERS: ATTEND Internal Medicine Interventional Cardiology
DX: I25.10 Atherosclerotic heart disease of native coronary artery without angina pectoris (principal); R94.39 Abnormal result of other cardiovascular function study; R06.09 Other forms of dyspnea; I35.0 Nonrheumatic aortic (valve) stenosis; E78.2 Mixed hyperlipidemia; E11.9 Type 2 diabetes mellitus without complications; I10 Essential (primary) hypertension; E66.9 Obesity, unspecified; I83.893 Varicose veins of bilateral lower extremities with other complications; Z72.0 Tobacco use; Z79.899 Other long term (current) drug therapy; Z79.84 Long term (current) use of oral hypoglycemic drugs; Z79.1 Long term (current) use of non-steroidal anti-inflammatories (NSAID); Z68.37 Body mass index [BMI] 37.0-37.9, adult
CPT/HCPCS: 93458; 80048; 85025; C1769; C1894; J2001; J3010; J1644; Q9967

== ENCOUNTER 2020-09-28 14:06 | Inpatient (IN) | payer MEDICARE, BC ==
--- NOTE | 2020-09-28 14:25 | ED ---
General Adult HPI - General Chief complaint: Shortness of Breath Stated complaint: SOB Time Seen by Provider: 09/28/20 14:18 Source: patient, family, RN notes reviewed Mode of arrival: ambulatory Limitations: no limitations - History of Present Illness Initial comments: Patient is a pleasant 74-year-old female presenting to the emergency Department with complaints of difficulty in breathing. Onset of symptoms was 4-5 days ago. No significant cough. Patient did have x-ray done from urgent care showing pneumonia on the left side. Patient complains of significant fatigue. Intermittent fevers. No loss of sense of taste or smell. Patient was recently tested negative for becerra virus. - Related Data Home Medications Medication Instructions Recorded Confirmed Atorvastatin [Lipitor] 40 mg PO HS 02/16/17 08/18/20 Citalopram Hydrobromide [CeleXA] 40 mg PO HS 02/16/17 08/18/20 Omeprazole [PriLOSEC] 20 mg PO HS 02/16/17 08/18/20 Pioglitazone HCl [Actos] 30 mg PO HS 02/16/17 08/18/20 Aspirin 81 mg PO DAILY 08/16/20 08/18/20 Ibuprofen [Motrin] 800 mg PO Q8H PRN 08/16/20 08/16/20 Lisinopril [Zestril] 10 mg PO HS 08/16/20 08/18/20 metFORMIN HCL [Glucophage] 1,000 mg PO BID 08/16/20 08/18/20 Allergies Allergy/AdvReac Type Severity Reaction Status Date / Time No Known Allergies Allergy Verified 08/16/20 13:14 Review of Systems ROS Statement: Those systems with pertinent positive or pertinent negative responses have been documented in the HPI. ROS Other: All systems not noted in ROS Statement are negative. Constitutional: Reports: fever, chills Eyes: Denies: eye pain ENT: Denies: ear pain Respiratory: Reports: dyspnea. Denies: cough Cardiovascular: Denies: chest pain Endocrine: Reports: fatigue Gastrointestinal: Denies: abdominal pain Genitourinary: Denies: dysuria Musculoskeletal: Denies: back pain Skin: Denies: rash Neurological: Denies: weakness Past Medical History Past Medical History: Diabetes Mellitus, GERD/Reflux, Hyperlipidemia, Hypertension, Osteoarthritis (OA) Additional Past Medical History / Comment(s): IBS, frequent neck pain, recent stress test, mild cold sx. & nasal congestion, just started History of Any Multi-Drug Resistant Organisms: None Reported Past Surgical History: Orthopedic Surgery, Tubal Ligation Additional Past Surgical History / Comment(s): CTS surg. rosario , left hand surg., trigger finger surg. Past Anesthesia/Blood Transfusion Reactions: No Reported Reaction Past Psychological History: No Psychological Hx Reported Smoking Status: Former smoker General Exam Limitations: no limitations General appearance: alert, in no apparent distress Head exam: Present: normocephalic Eye exam: Present: normal appearance Neck exam: Present: normal inspection Respiratory exam: Present: rhonchi (Trace left base) Cardiovascular Exam: Present: regular rate, normal rhythm GI/Abdominal exam: Present: soft. Absent: tenderness Extremities exam: Present: normal inspection. Absent: pedal edema, calf tenderness Neurological exam: Present: alert Psychiatric exam: Present: normal affect, normal mood Skin exam: Present: normal color Course Vital Signs 09/28/20 09/28/20 09/28/20 14:11 14:53 15:03 Temperature 97.9 F Pulse Rate 86 72 Respiratory 18 18 18 Rate Blood Pressure 102/62 149/72 O2 Sat by Pulse 94 L 96 Oximetry 09/28/20 09/28/20 15:39 16:20 Temperature 98.4 F Pulse Rate 65 67 Respiratory 18 18 Rate Blood Pressure 93/56 96/48 O2 Sat by Pulse 97 95 Oximetry EKG Findings - EKG Comments: EKG Findings:: Normal sinus rhythm at 75. VT 16. QRS 74. QT 410. QTc 457. Normal axis. Normal QRS. No acute ST change. Medical Decision Making - Medical Decision Making Patient reevaluated and updated. Patient states she has now had 3 negative virus test. Symptoms otherwise are somewhat vicious. PCR will be ordered. Pat ient will be admitted for IV antibiotics. Case discussed with Dr. Luis, who will admit covering for Dr. Anna Souza. - Lab Data Result diagrams: 09/28/20 14:49 09/28/20 14:49 Lab Results 09/28/20 09/28/20 09/28/20 Range/Units 14:36 14:49 14:49 WBC 6.7 (3.8-10.6) k/uL RBC 4.26 (3.80-5.40) m/uL Hgb 12.7 (11.4-16.0) gm/dL Hct 37.4 (34.0-46.0) % MCV 87.8 D (80.0-100.0) fL MCH 29.9 (25.0-35.0) pg MCHC 34.0 (31.0-37.0) g/dL RDW 13.0 (11.5-15.5) % Plt Count 428 (150-450) k/uL MPV 7.3 Neutrophils % 84 % Lymphocytes % 8 % Monocytes % 5 % Eosinophils % 1 % Basophils % 1 % Neutrophils # 5.6 (1.3-7.7) k/uL Lymphocytes # 0.5 L (1.0-4.8) k/uL Monocytes # 0.3 (0-1.0) k/uL Eosinophils # 0.1 (0-0.7) k/uL Basophils # 0.1 (0-0.2) k/uL PT 10.4 (9.0-12.0) sec INR 1.0 (<1.2) APTT 24.3 (22.0-30.0) sec Sodium (137-145) mmol/L Potassium (3.5-5.1) mmol/L Chloride (98-107) mmol/L Carbon Dioxide (22-30) mmol/L Anion Gap mmol/L BUN (7-17) mg/dL Creatinine (0.52-1.04) mg/dL Est GFR (CKD-EPI)AfAm (>60 ml/min/1.73 sqM) Est GFR (CKD-EPI)NonAf (>60 ml/min/1.73 sqM) Glucose (74-99) mg/dL Plasma Lactic Acid Salvador (0.7-2.0) mmol/L Calcium (8.4-10.2) mg/dL Magnesium (1.6-2.3) mg/dL Total Bilirubin (0.2-1.3) mg/dL AST (14-36) U/L ALT (4-34) U/L Alkaline Phosphatase (38-126) U/L Lactate Dehydrogenase (313-618) U/L C-Reactive Protein (<10.0) mg/L Total Protein (6.3-8.2) g/dL Albumin (3.5-5.0) g/dL Coronavirus (PCR) Not Detected (Not Detectd) 12/16/20 12/16/20 Range/Units 14:49 14:49 WBC (3.8-10.6) k/uL RBC (3.80-5.40) m/uL Hgb (11.4-16.0) gm/dL Hct (34.0-46.0) % MCV (80.0-100.0) fL MCH (25.0-35.0) pg MCHC (31.0-37.0) g/dL RDW (11.5-15.5) % Plt Count (150-450) k/uL MPV Neutrophils % % Lymphocytes % % Monocytes % % Eosinophils % % Basophils % % Neutrophils # (1.3-7.7) k/uL Lymphocytes # (1.0-4.8) k/uL Monocytes # (0-1.0) k/uL Eosinophils # (0-0.7) k/uL Basophils # (0-0.2) k/uL PT (9.0-12.0) sec INR (<1.2) APTT (22.0-30.0) sec Sodium 130 L (137-145) mmol/L Potassium 3.7 (3.5-5.1) mmol/L Chloride 94 L (98-107) mmol/L Carbon Dioxide 28 (22-30) mmol/L Anion Gap 8 mmol/L BUN 20 H (7-17) mg/dL Creatinine 0.87 (0.52-1.04) mg/dL Est GFR (CKD-EPI)AfAm 75 (>60 ml/min/1.73 sqM) Est GFR (CKD-EPI)NonAf 65 (>60 ml/min/1.73 sqM) Glucose 154 H (74-99) mg/dL Plasma Lactic Acid Salvador 1.3 (0.7-2.0) mmol/L Calcium 8.8 (8.4-10.2) mg/dL Magnesium 1.6 (1.6-2.3) mg/dL Total Bilirubin 0.9 (0.2-1.3) mg/dL AST 81 H (14-36) U/L ALT 72 H (4-34) U/L Alkaline Phosphatase 76 (38-126) U/L Lactate Dehydrogenase 946 H (313-618) U/L C-Reactive Protein 88.7 H (<10.0) mg/L Total Protein 6.7 (6.3-8.2) g/dL Albumin 3.5 (3.5-5.0) g/dL Coronavirus (PCR) (Not Detectd) - Radiology Data Radiology results: image reviewed (Chest x-ray shows patchy parahilar bilateral infiltrates, consider: 19) Disposition Clinical Impression: Pneumonia Disposition: ADMITTED IP TO THIS HOSP Is patient prescribed a controlled substance at d/c from ED?: No Referrals: Anna Corrales MD [Primary Care Provider] - 1-2 days Decision Time: 16:29
[2020-09-28 14:58] LABS: Basophils # (A) 0.1 k/uL (0-0.2); Basophils % (A) 1 %; Eosinophils # (A) 0.1 k/uL (0-0.7); Eosinophils % (A) 1 %; HCT 37.4 % (34.0-46.0); HGB 12.7 gm/dL (11.4-16.0); Lymphocytes # (A) 0.5 k/uL (1.0-4.8); Lymphocytes % (A) 8 %; MCH 29.9 pg (25.0-35.0); Mean Platelet Volume 7.3; Monocytes # (A) 0.3 k/uL (0-1.0); Monocytes % (A) 5 %; Neutrophils # (A) 5.6 k/uL (1.3-7.7); Neutrophils % (A) 84 %; Platelet Count 428 k/uL (150-450); RBC 4.26 m/uL (3.80-5.40); WBC 6.7 k/uL (3.8-10.6)
[2020-09-28 15:02] LABS: MCV 87.8 fL (80.0-100.0)
[2020-09-28 15:09] LABS: Albumin 3.5 g/dL (3.5-5.0); C Reactive Protein 88.7 mg/L (<10.0); Calcium 8.8 mg/dL (8.4-10.2); Magnesium 1.6 mg/dL (1.6-2.3); Potassium 3.7 mmol/L (3.5-5.1); Total Bilirubin 0.9 mg/dL (0.2-1.3); Total Protein 6.7 g/dL (6.3-8.2)
[2020-09-28 15:13] LABS: Partial Thromboplastin Time 24.3 sec (22.0-30.0); Prothrombin Time 10.4 sec (9.0-12.0)
--- NOTE | 2020-09-28 15:40 | XR ---
EXAMINATION TYPE: XR chest 1V portable DATE OF EXAM: 09/28/2020 HISTORY: Shortness of breath. COMPARISON: 02/27/2017 TECHNIQUE: Single view of the chest is submitted. FINDINGS: Demonstrated are scattered senescent parenchymal change. Patchy perihilar and basilar infiltrates noted compatible with Covid 19 pneumonia. The heart is stable. Hilar and mediastinal structures are within normal limits. Degenerative changes are seen of the dorsal spine. IMPRESSION: 1. Patchy perihilar and basilar infiltrates noted compatible with Covid 19 pneumonia.
[2020-09-28] MEDS ORDERED: SODIUM CHLORIDE 0.9% 1,000 ML IV STA (16:24)
[2020-09-28] MEDS ORDERED: PNEUMONIA PROTOCOL UTILIZED 1 EACH MISC PO PRN (16:29)
[2020-09-28] MEDS ORDERED: AZITHROMYCIN 500 MG in SODIUM CHLORIDE 0.9% 250 ML IVPB STA (16:29)
[2020-09-28] MEDS ORDERED: ALBUTEROL HFA INHALER INHALATION PRN (16:31)
[2020-09-28] MEDS: SODIUM CHLORIDE 0.9% 1,000 ML IV SCH (17:35)
[2020-09-28 20:09] LABS: Glucose,Whole Blood 123 mg/dL (75-99)
[2020-09-28] MEDS: INSULIN ASPART (NovoLOG) 100 UNIT/ML VIAL SQ SCH (20:10)
[2020-09-28] MEDS: CITALOPRAM HYDROBROMIDE 20 MG TAB PO SCH (20:17)
[2020-09-28] MEDS: PANTOPRAZOLE 40 MG TABLET PO SCH (20:17)
[2020-09-28] MEDS: ALBUTEROL HFA INHALER INHALATION SCH (20:43)
[2020-09-28] MEDS ORDERED: lisinopriL 10 MG TAB PO SCH (21:00)
--- NOTE | 2020-09-28 23:39 | P.HPIM ---
History of Present Illness H&P Date: 09/28/20 Chief Complaint: LEO Patient is a 74-year-old female with a known history of hypertension, diabetes type 2 [id number], osteoarthritis, hyperlipidemia, IBS and history of previous smoking quit 16 years ago presents to ER with complaints of worsening shortness of breath and exertional dyspnea for the past 5 days. Patient denied any fever or chills. Does have cough without sputum production. T patient was seen in urgent care clinic where she had chest x-ray done showed pneumonia on the left side. Patient was recently tested for coronavirus x2 which was nega tive. Patient states that she had cardiac catheterization done on 08/18/2020 showed calcified coronaries. Mild triple-vessel coronary artery disease. Recommended medical management. Patient follows with Dr. Fox. Chest x-ray showed patchy perihilar and basilar infiltrates noted compatible with COVID-19 pneumonia. EKG showed normal sinus rhythm. Laboratory data showed WBC 6.7, hemoglobin 12.7, MCV 87.8 and platelets 428 Lymphocyte 0.5, AST 81, ALT 72, LDH 946, CRP 88.7 COVID-19 rapid PCR is negative. Sodium 130, potassium 3.7, chloride 94, BUN 20 and creatinine 0.87 Patient is currently afebrile and saturating at 92% on nasal cannula. Review of Systems Constitutional: Patient denies any fever or chills . generalized weakness and fatigue. Abdomen: Patient denied nausea vomiting and diarrhea and abdominal pain. Cardiovascular: Patient denies any chest pain or short of breath no palpitations. Respiratory: Patient does have cough without sputum production and shortness of breath. Neurologic: Patient denied any numbness or tingling headache. Musculoskeletal: Patient denies any complaints of joint swelling or deformity. Skin: Negative Psychiatric: Negative Endocrine: No heat or cold intolerance. No recent weight gain. Genitourinary: No dysuria or hematuria. All other 14 point ROS negative except the above Past Medical History Past Medical History: Diabetes Mellitus, GERD/Reflux, Hyperlipidemia, Hypertension, Osteoarthritis (OA) Additional Past Medical History / Comment(s): IBS, frequent neck pain, recent stress test, mild cold sx. & nasal congestion, just started History of Any Multi-Drug Resistant Organisms: None Reported Past Surgical History: Orthopedic Surgery, Tubal Ligation Additional Past Surgical History / Comment(s): CTS surg. rosario , left hand surg., trigger finger surg. Past Anesthesia/Blood Transfusion Reactions: No Reported Reaction Past Psychological History: No Psychological Hx Reported Smoking Status: Former smoker Past Alcohol Use History: None Reported Additional Past Alcohol Use History / Comment(s): quit smoking 16 yrs. ago, smo ked 30 yrs. 1ppd Past Drug Use History: None Reported Medications and Allergies Home Medications Medication Instructions Recorded Confirmed Type Omeprazole [PriLOSEC] 20 mg PO HS 02/16/17 09/28/20 History Pioglitazone HCl [Actos] 30 mg PO HS 02/16/17 09/28/20 History Lisinopril [Zestril] 10 mg PO HS 08/16/20 09/28/20 History metFORMIN HCL [Glucophage] 1,000 mg PO BID 08/16/20 09/28/20 History Citalopram Hydrobromide [CeleXA] 40 mg PO HS 09/28/20 09/28/20 History hydroCHLOROthiazide 25 mg PO DAILY 09/28/20 09/28/20 History Allergies Allergy/AdvReac Type Severity Reaction Status Date / Time No Known Allergies Allergy Verified 09/28/20 16:42 Physical Exam Vitals: Vital Signs Temp Pulse Pulse Resp BP BP Pulse Ox 09/28/20 19:10 98.0 F 69 19 112/67 93 L 09/28/20 18:54 98.4 F 66 18 109/61 96 09/28/20 18:43 66 18 109/61 96 09/28/20 17:32 68 18 102/57 98 09/28/20 16:43 63 18 103/58 98 09/28/20 16:20 98.4 F 67 18 96/48 95 09/28/20 15:39 65 18 93/56 97 09/28/20 15:03 18 09/28/20 14:53 72 18 149/72 96 09/28/20 14:11 97.9 F 86 18 102/62 94 L Intake and Output 09/28/20 09/28/20 09/28/20 06:59 14:59 22:59 Other: # Voids 2 Weight 90.718 kg 90.718 kg PHYSICAL EXAMINATION: Patient is lying in the bed comfortably, no acute distress, awake alert and oriented.. HEENT: Normocephalic. Neck is supple. Pupils reactive. Nostrils clear. Oral cavity is moist. Ears reveal no drainage. Neck reveals no JVD, carotid bruits, or thyromegaly. CHEST EXAMINATION: Trachea is central. Symmetrical expansion. Lung mar clear to auscultation and percussion. CARDIAC: Normal S1, S2 with no gallops. No murmurs ABDOMEN: Soft. Bowel sounds normal. No organomegaly. No abdominal bruits. Extremities: reveal no edema. No clubbing or cyanosis Neurologically awake, alert, oriented x3 with well-coordinated movements. No focal deficits noted Skin: No rash or skin lesions. Psychiatric: Coperative. Nonsuicidal Musculoskeletal: No joint swelling or deformity. Normal range of motion. Results CBC & Chem 7: 09/28/20 14:49 09/28/20 14:49 Labs: Abnormal Lab Results - Last 24 Hours (Table) 09/28/20 09/28/20 09/28/20 Range/Units 14:49 14:49 20:08 Lymphocytes # 0.5 L (1.0-4.8) k/uL Sodium 130 L (137-145) mmol/L Chloride 94 L (98-107) mmol/L BUN 20 H (7-17) mg/dL Glucose 154 H (74-99) mg/dL POC Glucose (mg/dL) 123 H (75-99) mg/dL AST 81 H (14-36) U/L ALT 72 H (4-34) U/L Lactate Dehydrogenase 946 H (313-618) U/L C-Reactive Protein 88.7 H (<10.0) mg/L Thrombosis Risk Factor Assmnt - DVT/VTE Prophylaxis DVT/VTE Prophylaxis: Pharmacologic Prophylaxis ordered Assessment and Plan Assessment: Bilateral patchy infiltrates suspected for COVID-19 pneumonia. Possible community-acquired/atypical pneumonia cannot be excluded. Elevated inflammatory markers Diabetes type 2 [id number] Hypertension Obesity with BMI 36.6 Hypovolemic hyponatremia DVT prophylaxis with Lovenox subcu Plan: Patient will be continued on gentle IV hydration. started on antibiotics in the form of ceftriaxone and azithromycin. will add dexamethasone and Lovenox subcu. Titrate down FiO2 and follow-up closely. Follow-up procalcitonin level. Pulmonary will be consulted and further recommendations based on the clinical course. Continue with insulin sliding scale and hold blood pressure medications since the blood pressure is not elevated at this time. Prognosis is guarded. Time with Patient: Greater than 30
[2020-09-29] MEDS: dexAMETHasone 2 MG TAB PO SCH ×2 (00:40→09:22)
[2020-09-29 04:08] LABS: Ferritin 322.4 ng/mL (10.0-291.0)
[2020-09-29] MEDS: SODIUM CHLORIDE 0.9% 1,000 ML IV SCH ×2 (04:34→12:36)
[2020-09-29 06:50] LABS: Glucose,Whole Blood 146 mg/dL (75-99)
[2020-09-29 07:00] LABS: Basophils % (A) 0 %; Eosinophils % (A) 0 %; HCT 35.7 % (34.0-46.0); HGB 11.9 gm/dL (11.4-16.0); Lymphocytes # (A) 0.5 k/uL (1.0-4.8); Lymphocytes % (A) 7 %; MCH 29.7 pg (25.0-35.0); MCHC 33.4 g/dL (31.0-37.0); MCV 88.9 fL (80.0-100.0); Mean Platelet Volume 7.4; Monocytes # (A) 0.2 k/uL (0-1.0); Monocytes % (A) 4 %; Neutrophils # (A) 5.5 k/uL (1.3-7.7); Neutrophils % (A) 87 %; Platelet Count 437 k/uL (150-450); RBC 4.02 m/uL (3.80-5.40); RDW 13.1 % (11.5-15.5); WBC 6.3 k/uL (3.8-10.6)
[2020-09-29] MEDS: INSULIN ASPART (NovoLOG) 100 UNIT/ML VIAL SQ SCH ×4 (07:47→20:09)
[2020-09-29] MEDS: ALBUTEROL HFA INHALER INHALATION SCH ×4 (08:58→20:26)
[2020-09-29] MEDS ORDERED: hydroCHLOROthiazide 25 MG TAB PO SCH (09:00)
[2020-09-29] MEDS ORDERED: ENOXAPARIN 40 MG/0.4 ML SYRINGE SQ SCH (09:00)
[2020-09-29] MEDS: AZITHROMYCIN 500 MG TAB PO SCH (09:23)
--- NOTE | 2020-09-29 09:25 | XR ---
EXAMINATION TYPE: XR chest 1V DATE OF EXAM: 09/29/2020 COMPARISON: 09/28/2020 HISTORY: Follow-up pneumonia TECHNIQUE: Single frontal view of the chest is obtained. FINDINGS: Demonstrated are scattered senescent parenchymal change. Patchy perihilar and basilar infi ltrates noted compatible with pneumonia. The heart is stable. Hilar and mediastinal structures are wi thin normal limits. Degenerative changes are seen of the dorsal spine. IMPRESSION: Stable patchy bilateral infiltrate.
[2020-09-29 11:36] LABS: Glucose,Whole Blood 204 mg/dL (75-99)
[2020-09-29 11:43] LABS: African American GFR (CKD) 97.5 (60.0-200.0); Albumin 3.6 g/dL (3.80-4.90); Albumin/Globulin Ratio 1.71 (1.60-3.17); Anion Gap 6.1 mmol/L (4.00-12.00); BUN/Creat Ratio 21.43 Ratio (12.00-20.00); Calcium 8.3 mg/dL (8.7-10.3); Carbon Dioxide 26.9 mmol/L (21.6-31.8); Globulin 2.1 g/dL (1.6-3.3); Non-African American GFR(CKD) 84.2 (60.0-200.0); Potassium 4.1 mmol/L (3.5-5.5); Total Bilirubin 0.4 mg/dL (0.2-1.2); Total Protein 5.7 g/dL (6.2-8.2)
--- NOTE | 2020-09-29 16:11 | P.CNPUL ---
History of Present Illness Consult date: 09/29/20 Reason for consult: dyspnea Chief complaint: Shortness of breath, aches and pains, weakness History of present illness: 74-year-old white female patient of Dr. Anna Souza, with past medical history of a small facet 2, GERD/reflux, hypertension, hyperlipidemia, osteoarthritis, former smoker, diabetes, and osteo-arthritis who presented to the emergency department on 09/28/2020 for evaluation of worsening shortness of breath, generalized body aches and pains, and weakness that have been going on for a period of 10 days. Patient did for cough and on 3 different occasions, including on 07/22/2020, 09/22/2020, and during this admission on 09/28/2020 and all 3 tests were negative. She states that on September 16 patient was exposed to her girlfriend who was positive for COVID. Since then her symptoms progress, brittnee camilo is now more short of breath, she denies any cough, denies any chest discomfort, she is complaining of being weak, denied any nausea or diarrhea. Her chest x-ray revealed patchy perihilar and basilar infiltrates compatible with COVID pneumonia. Blood work revealed lymphopenia lymphocytic, 0.5, d-dimer of 5.53, sodium of 130, potassium 3.7, chloride is 94, CO2 is 28, B1 is 20, creatinine 0.87, ferritin level of 322, LDH was 946, CRP was elevated at 88.7, and calcitonin level was low at 0.13, and patient also had elevation of AST and ALT at 81 and 72 respectively, alkaline phosphatase was within normal limits. Patient is on azithromycin and Rocephin, she is on prophylactic dose of Lovenox, and IV fluids running at 100 per hour, she appears to be breathing comfortably right now, he is on 2 L of oxygen and the pulse ox between 91-96%. Review of Systems All systems: negative Constitutional: Reports weakness, Denies chills, Denies fever Eyes: denies blurred vision, denies pain Ears, nose, mouth and throat: Denies headache, Denies sore throat Cardiovascular: Denies chest pain, Denies shortness of breath Respiratory: Reports dyspnea, Denies cough Gastrointestinal: Denies abdominal pain, Denies diarrhea, Denies nausea, Denies vomiting Genitourinary: Denies dysuria, Denies hematuria Musculoskeletal: Denies myalgias Integumentary: Denies pruritus, Denies rash Neurological: Denies numbness, Denies weakness Psychiatric: Denies anxiety, Denies depression Endocrine: Denies fatigue, Denies weight change Past Medical History Past Medical History: Diabetes Mellitus, GERD/Reflux, Hyperlipidemia, Hypert ension, Osteoarthritis (OA) Additional Past Medical History / Comment(s): IBS, frequent neck pain, recent stress test, mild cold sx. & nasal congestion, just started History of Any Multi-Drug Resistant Organisms: None Reported Past Surgical History: Orthopedic Surgery, Tubal Ligation Additional Past Surgical History / Comment(s): CTS surg. rosario , left hand surg., trigger finger surg. Past Anesthesia/Blood Transfusion Reactions: No Reported Reaction Past Psychological History: No Psychological Hx Reported Smoking Status: Former smoker Past Alcohol Use History: None Reported Additional Past Alcohol Use History / Comment(s): quit smoking 16 yrs. ago, smoked 30 yrs. 1ppd Past Drug Use History: None Reported Medications and Allergies Home Medications Medication Instructions Recorded Confirmed Type Omeprazole [PriLOSEC] 20 mg PO HS 02/16/17 09/28/20 History Pioglitazone HCl [Actos] 30 mg PO HS 02/16/17 09/28/20 History Lisinopril [Zestril] 10 mg PO HS 08/16/20 09/28/20 History metFORMIN HCL [Glucophage] 1,000 mg PO BID 08/16/20 09/28/20 History Citalopram Hydrobromide [CeleXA] 40 mg PO HS 09/28/20 09/28/20 History hydroCHLOROthiazide 25 mg PO DAILY 09/28/20 09/28/20 History Allergies Allergy/AdvReac Type Severity Reaction Status Date / Time No Known Allergies Allergy Verified 09/28/20 16:42 Physical Exam Vitals: Vital Signs Temp Pulse Pulse Resp BP BP Pulse Ox 09/29/20 14:41 97.6 F 73 17 128/74 91 L 09/29/20 14:23 96 09/29/20 09:20 97.4 F L 75 18 140/72 96 09/29/20 08:00 75 18 09/29/20 05:55 98.0 F 70 16 157/81 97 09/29/20 02:15 98.0 F 70 17 130/76 97 12/16/20 19:10 98.0 F 69 19 112/67 93 L 09/28/20 19:00 18 09/28/20 18:54 98.4 F 66 18 109/61 96 09/28/20 18:43 66 18 109/61 96 09/28/20 17:32 68 18 102/57 98 09/28/20 16:43 63 18 103/58 98 09/28/20 16:20 98.4 F 67 18 96/48 95 Intake and Output 09/29/20 09/29/20 09/29/20 06:59 14:59 22:59 Other: Voiding Method Toilet # Voids 1 GENERAL EXAM: Alert, active, pleasant, white female on 2 L of oxygen pulse ox between 91-96%, comfortable in no apparent distress. HEAD: Normocephalic/atraumatic. EYES: Normal reaction of pupils, equal size. Conjunctiva pink, sclera white. NOSE: Clear with pink turbinates. THROAT: No erythema or exudates. NECK: No masses, no JVD, no thyroid enlargement, no adenopathy. CHEST: No chest wall deformity. Symmetrical expansion. LUNGS: Equal air entry with bilateral crackles, wheeze, rhonchi or dullness. CVS: Regular rate and rhythm, normal S1 and S2, no gallops, no murmurs, no rubs ABDOMEN: Soft, nontender. No hepatosplenomegaly, normal bowel sounds, no guarding or rigidity. EXTREMITIES: No clubbing, no edema, no cyanosis, 2+ pulses and upper and lower extremities. MUSCULOSKELETAL: Muscle strength and tone normal. SPINE: No scoliosis or deformity SKIN: No rashes CENTRAL NERVOUS SYSTEM: Alert and oriented -3. No focal deficits, tone is normal in all 4 extremities. PSYCHIATRIC: Alert and oriented -3. Appropriate affect. Intact judgment and insight. Results - Laboratory Findings CBC and BMP: 09/29/20 06:09 09/29/20 06:09 PT/INR, D-dimer PT 10.4 sec (9.0-12.0) 09/28/20 14:49 INR 1.0 (<1.2) 09/28/20 14:49 D-Dimer 5.53 mg/L FEU (<0.60) H 09/29/20 06:09 Abnormal lab findings: Abnormal Labs 09/28/20 09/28/20 09/28/20 14:49 14:49 14:49 Lymphocytes # 0.5 L D-Dimer Sodium 130 L Chloride 94 L BUN 20 H BUN/Creatinine Ratio Glucose 154 H POC Glucose (mg/dL) Calcium Ferritin 322.4 H AST 81 H ALT 72 H Lactate Dehydrogenase 946 H C-Reactive Protein 88.7 H Total Protein Albumin Procalcitonin 0.13 H 09/28/20 09/29/20 09/29/20 20:08 06:09 06:09 Lymphocytes # 0.5 L D-Dimer Sodium Chloride BUN BUN/Creatinine Ratio 21.43 H Glucose 151 H POC Glucose (mg/dL) 123 H Calcium 8.3 L Ferritin AST 46 H ALT 55 H Lactate Dehydrogenase C-Reactive Protein Total Protein 5.7 L Albumin 3.60 L Procalcitonin 09/29/20 09/29/20 09/29/20 06:09 06:48 11:33 Lymphocytes # D-Dimer 5.53 H Sodium Chloride BUN BUN/Creatinine Ratio Glucose POC Glucose (mg/dL) 146 H 204 H Calcium Ferritin AST ALT Lactate Dehydrogenase C-Reactive Protein Total Protein Albumin Procalcitonin - Diagnostic Findings Chest x-ray: report reviewed, image reviewed Assessment and Plan Plan: Assessment: #1. Acute hypoxic respiratory failure related to possibility of viral pneumonitis, possibly COVID 19 pneumonitis, although patient was tested twice on 09/22/2020, and again on 09/28/2020 and the test was negative. However there i s still suspicion for COVID 19 pneumonia related to the appearance of perihilar, and bilateral infiltrates, and a history of exposure to a COVID 19 positive friend. Onset of symptoms was 10 days ago #2. Weakness, shortness of breath, body aches, related to the above #3. Rule out possibility of community acquired pneumonia #4. Elevated d-dimer, 5.53, possibly related to possibility of recent COVID 19 infection #5. Elevated inflammatory markers, including LDH, CRP, ferritin, AST and ALP, possibly related to viral pneumonitis possibly related to COVID 19 #6. History of CAD with recent heart catheterization showing calcified coronary arteries, was recommended medical management #7. Hypertension #8. Hyperlipidemia #9. Diabetes mellitus #10. IBS #11. 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 Continue monitoring patient's dyspnea level, oxygenation. Follow-up inflammatory markers, follow-up d-dimer, follow-up chest x-ray in the morning, we will continue to follow I performed a history & physical examination of the patient and discussed their management with my nurse practitioner, Jen Ramires. I reviewed the nurse practitioner's note and agree with the documented findings and plan of care. Lung sounds are positive for diminished breath sounds The findings and the impression was discussed with the patient. I attest to the documentation by the nurse practitioner. Time with Patient: Greater than 30
[2020-09-29 16:47] LABS: Glucose,Whole Blood 283 mg/dL (75-99)
[2020-09-29 20:03] LABS: Glucose,Whole Blood 209 mg/dL (75-99)
[2020-09-29] MEDS: CITALOPRAM HYDROBROMIDE 20 MG TAB PO SCH (20:09)
[2020-09-29] MEDS: ENOXAPARIN 40 MG/0.4 ML SYRINGE SQ SCH (20:09)
[2020-09-29] MEDS: PANTOPRAZOLE 40 MG TABLET PO SCH (20:09)
[2020-09-30] MEDS: SODIUM CHLORIDE 0.9% 1,000 ML IV SCH ×3 (01:44→17:37)
[2020-09-30 07:11] LABS: Glucose,Whole Blood 160 mg/dL (75-99)
[2020-09-30] MEDS: INSULIN ASPART (NovoLOG) 100 UNIT/ML VIAL SQ SCH ×4 (07:22→21:58)
[2020-09-30 08:14] VITALS: RESP 16
[2020-09-30] MEDS: ENOXAPARIN 40 MG/0.4 ML SYRINGE SQ SCH ×2 (08:27→21:58)
[2020-09-30] MEDS: dexAMETHasone 2 MG TAB PO SCH (08:27)
[2020-09-30] MEDS: AZITHROMYCIN 500 MG TAB PO SCH (08:27)
[2020-09-30] MEDS: ALBUTEROL HFA INHALER INHALATION SCH ×4 (08:53→19:22)
[2020-09-30 09:34] LABS: C Reactive Protein 4.8 mg/dL (0.0-0.8)
--- NOTE | 2020-09-30 10:01 | XR ---
EXAMINATION TYPE: XR chest 1V portable DATE OF EXAM: 09/30/2020 COMPARISON: 08/25/2020 HISTORY: Cough possible pneumonia TECHNIQUE: Single frontal view of the chest is obtained. FINDINGS: Heart is prominent is bilateral patchy infiltrate. No pneumothorax. No pleural effusion. A rthropathy of the right shoulder. IMPRESSION: Patchy bilateral multifocal pneumonia.
[2020-09-30 11:35] LABS: Glucose,Whole Blood 171 mg/dL (75-99)
--- NOTE | 2020-09-30 15:13 | P.PN ---
Subjective Progress Note Date: 09/30/20 Principal diagnosis: Shortness of breath, aches and pains, weakness 74-year-old white female patient of Dr. Anna Souza, with past medical history of a small facet 2, GERD/reflux, hypertension, hyperlipidemia, osteoarthritis, former smoker, diabetes, and osteo-arthritis who presented to the emergency department on 09/28/2020 for evaluation of worsening shortness of breath, ge neralized body aches and pains, and weakness that have been going on for a period of 10 days. Patient did for cough and on 3 different occasions, including on 07/22/2020, 09/22/2020, and during this admission on 09/28/2020 and all 3 tests were negative. She states that on September 16 patient was exposed to her girlfriend who was positive for COVID. Since then her symptoms progress, patient is now more short of breath, she denies any cough, denies any chest discomfort, she is complaining of being weak, denied any nausea or diarrhea. Her chest x-ray revealed patchy perihilar and basilar infiltrates compatible with COVID pneumonia. Blood work revealed lymphopenia lymphocytic, 0.5, d-dimer of 5.53, sodium of 130, potassium 3.7, chloride is 94, CO2 is 28, B1 is 20, creatinine 0.87, ferritin level of 322, LDH was 946, CRP was elevated at 88.7, and calcitonin level was low at 0.13, and patient also had elevation of AST and ALT at 81 and 72 respectively, alkaline phosphatase was within normal limits. Patient is on azithromycin and Rocephin, she is on prophylactic dose of Lovenox, and IV fluids running at 100 per hour, she appears to be breathing comfortably right now, he is on 2 L of oxygen and the pulse ox between 91-96%. On 09/30/2020 patient seen in follow-up on medical surgical floor. She is awake and alert, in no distress, states she is feeling much better today, she was t ested for COVID 19 and she had tested positive however the findings of her chest x-ray, her previous history of recent exposure to a friend positive for COVID, still suggest possibility of recent history of COVID 19 infection. Antibody test was sent, pending at this time, today's labs have been reviewed, d-dimer is down trending, down to 3.07, LDH significantly improved and down to 282, and CRP is 4.8, acetone level was negative at 0.13. Patient remains on azithromycin and Rocephin, prophylactic dose of Lovenox, IV fluids, and oral Decadron, she is feeling better on today's exam, breathing easier, no nausea vomiting diarrhea, no abdominal pain, no chest discomfort Objective - Vital Signs Vital signs: Vital Signs Temp 97.7 F 09/30/20 14:00 Pulse 78 09/30/20 14:00 Resp 16 09/30/20 14:00 BP 115/74 09/30/20 14:00 Pulse Ox 93 L 09/30/20 14:00 Intake & Output 09/29/20 09/30/20 09/30/20 18:59 06:59 18:59 Intake Total 354 Balance 354 Intake: Oral 354 Other: Voiding Method Toilet Toilet Toilet # Voids 2 # Bowel Movements 0 - Exam GENERAL EXAM: Alert, active, pleasant, white female on 2 L of oxygen pulse ox between 91-96%, comfortable in no apparent distress. HEAD: Normocephalic/atraumatic. EYES: Normal reaction of pupils, equal size. Conjunctiva pink, sclera white. NOSE: Clear with pink turbinates. THROAT: No erythema or exudates. NECK: No masses, no JVD, no thyroid enlargement, no adenopathy. CHEST: No chest wall deformity. Symmetrical expansion. LUNGS: Equal air entry with bilateral crackles, wheeze, rhonchi or dullness. CVS: Regular rate and rhythm, normal S1 and S2, no gallops, no murmurs, no rubs ABDOMEN: Soft, nontender. No hepatosplenomegaly, normal bowel sounds, no guarding or rigidity. EXTREMITIES: No clubbing, no edema, no cyanosis, 2+ pulses and upper and lower extremities. MUSCULOSKELETAL: Muscle strength and tone normal. SPINE: No scoliosis or deformity SKIN: No rashes CENTRAL NERVOUS SYSTEM: Alert and oriented -3. No focal deficits, tone is normal in all 4 extremities. PSYCHIATRIC: Alert and oriented -3. Appropriate affect. Intact judgment and insight. - Labs CBC & Chem 7: 09/29/20 06:09 09/29/20 06:09 Labs: Abnormal Lab Results - Last 24 Hours (Table) 09/29/20 09/29/2020 Range/Units 16:45 20:01 05:42 D-Dimer 3.07 H (<0.60) mg/L FEU POC Glucose (mg/dL) 283 H 209 H (75-99) mg/dL Lactate Dehydrogenase (120-246) U/L C-Reactive Protein (0.0-0.8) mg/dL 09/30/20 09/30/20 09/30/20 Range/Units 05:42 07:10 11:34 D-Dimer (<0.60) mg/L FEU POC Glucose (mg/dL) 160 H 171 H (75-99) mg/dL Lactate Dehydrogenase 282 H (120-246) U/L C-Reactive Protein 4.8 H (0.0-0.8) mg/dL Microbiology - Last 24 Hours (Table) 09/28/20 14:49 Blood Culture - Preliminary Blood No Growth after 24 hours Assessment and Plan Plan: Assessment: #1. Acute hypoxic respiratory failure related to possibility of viral pneumonitis, possibly COVID 19 pneumonitis, although patient was tested twice on 09/22/2020, and again on 09/28/2020 and the test was negative. However there is still suspicion for COVID 19 pneumonia related to the appearance of perihilar, and bilateral infiltrates, and a history of exposure to a COVID 19 positive friend. Onset of symptoms was 10 days ago. Antibody test was sent and pending at this time #2. Weakness, shortness of breath, body aches, related to the above #3. Rule out possibility of community acquired pneumonia #4. Elevated d-dimer, 5.53, possibly related to possibility of recent COVID 19 infection #5. Elevated inflammatory markers, including LDH, CRP, ferritin, AST and ALP, possibly related to viral pneumonitis possibly related to COVID 19 #6. History of CAD with recent heart catheterization showing calcified coronary arteries, was recommended medical management #7. Hypertension #8. Hyperlipidemia #9. Diabetes mellitus #10. IBS #11. 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 I reviewed the nurse practitioner's note and agree with the documented findings and plan of care. Lung sounds are positive for diminished breath sounds The findings and the impression was discussed with the patient. I attest to the documentation by the nurse practitioner. Time with Patient: Less than 30
[2020-09-30 16:47] LABS: Glucose,Whole Blood 224 mg/dL (75-99)
[2020-09-30 20:35] LABS: Glucose,Whole Blood 219 mg/dL (75-99)
[2020-09-30] MEDS: PANTOPRAZOLE 40 MG TABLET PO SCH (21:58)
[2020-09-30] MEDS: CITALOPRAM HYDROBROMIDE 20 MG TAB PO SCH (21:58)
[2020-10-01] MEDS: SODIUM CHLORIDE 0.9% 1,000 ML IV SCH (05:30)
[2020-10-01 07:18] LABS: Glucose,Whole Blood 127 mg/dL (75-99)
[2020-10-01] MEDS: INSULIN ASPART (NovoLOG) 100 UNIT/ML VIAL SQ SCH ×2 (07:48→12:12)
[2020-10-01] MEDS: ENOXAPARIN 40 MG/0.4 ML SYRINGE SQ SCH (09:04)
[2020-10-01] MEDS: AZITHROMYCIN 500 MG TAB PO SCH (09:04)
[2020-10-01] MEDS: dexAMETHasone 2 MG TAB PO SCH (09:04)
[2020-10-01] MEDS: ALBUTEROL HFA INHALER INHALATION SCH ×2 (11:30→11:31)
[2020-10-01] MEDS ORDERED: LEVOFLOXACIN 500 MG TAB PO SCH (11:30)
[2020-10-01 12:03] LABS: Glucose,Whole Blood 170 mg/dL (75-99)
--- NOTE | 2020-10-01 14:19 | P.PN ---
Subjective Progress Note Date: 10/01/20 Principal diagnosis: Acute CoVID 19 pneumonitis 74-year-old white female patient of Dr. Anna Souza, with past medical history of a small facet 2, GERD/reflux, hypertension, hyperlipidemia, osteoarthritis, former smoker, diabetes, and osteo-arthritis who presented to the emergency department on 09/28/2020 for evaluation of worsening shortness of breath, generalized body aches and pains, and weakness that have been going on for a period of 10 days. Patient did for cough and on 3 different occasions, including on 07/22/2020, 09/22/2020, and during this admission on 09/28/2020 and all 3 tests were negative. She states that on September 16 patient was exposed to her girlfriend who was positive for COVID. Since then her symptoms progress, patient is now more short of breath, she denies any cough, denies any chest discomfort, she is complaining of being weak, denied any nausea or diarrhea. Her chest x-ray revealed patchy perihilar and basilar infiltrates compatible w ith COVID pneumonia. Blood work revealed lymphopenia lymphocytic, 0.5, d-dimer of 5.53, sodium of 130, potassium 3.7, chloride is 94, CO2 is 28, B1 is 20, creatinine 0.87, ferritin level of 322, LDH was 946, CRP was elevated at 88.7, and calcitonin level was low at 0.13, and patient also had elevation of AST and ALT at 81 and 72 respectively, alkaline phosphatase was within normal limits. Patient is on azithromycin and Rocephin, she is on prophylactic dose of Lovenox, and IV fluids running at 100 per hour, she appears to be breathing comfortably right now, he is on 2 L of oxygen and the pulse ox between 91-96%. On 09/30/2020 patient seen in follow-up on medical surgical floor. She is awake and alert, in no distress, states she is feeling much better today, she was tested for COVID 19 and she had tested positive however the findings of her chest x-ray, her previous history of recent exposure to a friend positive for COVID, still suggest possibility of recent history of COVID 19 infection. Antibody test was sent, pending at this time, today's labs have been reviewed, d-dimer is down trending, down to 3.07, LDH significantly improved and down to 282, and CRP is 4.8, acetone level was negative at 0.13. Patient remains on azithromycin and Rocephin, prophylactic dose of Lovenox, IV fluids, and oral Decadron, she is feeling better on today's exam, breathing easier, no nausea vom iting diarrhea, no abdominal pain, no chest discomfort The patient is seen today 10/01/2020 in follow-up on the regular medical floor. She is awake and alert in no acute distress. Breathing easier today compared to yesterday. Her antibodies were positive for CoVID 19. She is currently maintaining good O2 saturations in the 90s on room air. She's afebrile. She is anxious to go home. Objective - Vital Signs Vital signs: Vital Signs Temp 97.7 F 10/01/20 10:48 Pulse 77 10/01/20 10:48 Resp 16 10/01/20 10:48 BP 154/62 10/01/20 10:48 Pulse Ox 97 10/01/20 10:48 Intake & Output 09/30/20 10/01/20 10/01/20 18:59 06:59 18:59 Intake Total 354 1660 Balance 354 1660 Intake: Intake, IV Titration 1200 Amount Sodium Chloride 0.9% 1, 1200 000 ml @ 100 mls/hr IV . Q10H BERTRAM Rx#:[id number] Oral 354 460 Other: Voiding Method Toilet Toilet Toilet # Voids 2 - Exam GENERAL EXAM: Alert, active, pleasant female patient, on room air, comfortable in no apparent distress. HEAD: Normocephalic/atraumatic. EYES: Normal reaction of pupils, equal size. Conjunctiva pink, sclera white. NOSE: Clear with pink turbinates. THROAT: No erythema or exudates. NECK: No masses, no JVD, no thyroid enlargement, no adenopathy. CHEST: No chest wall deformity. Symmetrical expansion. LUNGS: Equal air entry with faint bilateral crackles, no wheeze, rhonchi or dullness. CVS: Regular rate and rhythm, normal S1 and S2, no gallops, no murmurs, no rubs ABDOMEN: Soft, nontender. No hepatosplenomegaly, normal bowel sounds, no guarding or rigidity. EXTREMITIES: No clubbing, no edema, no cyanosis, 2+ pulses and upper and lower extremities. MUSCULOSKELETAL: Muscle strength and tone normal. SPINE: No scoliosis or deformity SKIN: No rashes CENTRAL NERVOUS SYSTEM: Alert and oriented -3. No focal deficits, tone is normal in all 4 extremities. PSYCHIATRIC: Alert and oriented -3. Appropriate affect. Intact judgment and insight. - Labs CBC & Chem 7: 09/29/20 06:09 09/29/20 06:09 Labs: Abnormal Lab Results - Last 24 Hours (Table) 09/30/20 09/30/20 10/01/20 Range/Units 16:44 20:33 07:17 POC Glucose (mg/dL) 224 H 219 H 127 H (75-99) mg/dL 10/01/20 Range/Units 12:01 POC Glucose (mg/dL) 170 H (75-99) mg/dL Microbiology - Last 24 Hours (Table) 09/28/20 23:39 Blood Culture - Preliminary Blood No Growth after 24 hours 09/28/20 14:49 Blood Culture - Preliminary Blood No Growth after 48 hours Assessment and Plan Assessment: 1 Acute hypoxic respiratory failure related to COVID 19 pneumonitis, although patient was tested twice on 09/22/2020, and again on 09/28/2020 and the test was negative her antibody screen was positive. 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 Ortega She is recovered and on room air Cleared for discharge from the pulmonary standpoint I, the cosigning physician, performed a history & physical examination of the patient. Lungs sounds are clear. Maintaining good O2 saturations in the 90s on room air. I discussed the assessment and plan of care with my nurse practitioner, Evette Diallo. I attest to the above note as dictated by her.
[2020-10-01 15:37] VITALS: BP 185/78; PULSE 73; TEMP 97.5
== END 2020-10-01 15:54 | disposition home or self-care (01) | DRG 177 ==
LOC: EC 14:06 → 4SSUR 16:29
PROVIDERS: ADMIT Internal Medicine; ATTEND Internal Medicine
DX: U07.1 COVID-19 (principal); J12.89 Other viral pneumonia; J96.01 Acute respiratory failure with hypoxia; E87.1 Hypo-osmolality and hyponatremia; E11.9 Type 2 diabetes mellitus without complications; E86.1 Hypovolemia; I10 Essential (primary) hypertension; I25.10 Atherosclerotic heart disease of native coronary artery without angina pectoris; E78.5 Hyperlipidemia, unspecified; K21.9 Gastro-esophageal reflux disease without esophagitis; K58.9 Irritable bowel syndrome, unspecified; M47.9 Spondylosis, unspecified; M54.2 Cervicalgia; M19.90 Unspecified osteoarthritis, unspecified site; E66.9 Obesity, unspecified; Z68.36 Body mass index [BMI] 36.0-36.9, adult; Z79.84 Long term (current) use of oral hypoglycemic drugs; Z79.899 Other long term (current) drug therapy; Z87.891 Personal history of nicotine dependence; Z98.51 Tubal ligation status; Z87.39 Personal history of other diseases of the musculoskeletal system and connective tissue; Z98.890 Other specified postprocedural states
CPT/HCPCS: 36415; 71045; 80053; 82728; 83605; 83615; 83735; 84145; 85025; 85379; 85610; 85730; 86140; 86769; 87040; 87635; 93005; 94640; 96361; 96365; 96367; 99285

== ENCOUNTER → 2021-06-06 | Outpatient (CLI) | payer MEDICARE, BC ==
[2021-06-06 15:09] VITALS: BP 119/67; PULSE 96; RESP 18; TEMP 99
--- NOTE | 2021-06-06 16:11 | P.HPOB ---
History of Present Illness H&P Date: 06/06/21 Chief Complaint: The patient is here for her routine gynecologic exam. This is a 75-year-old with an LMP of 1990. The patient is here to establish with this office. She states it has been about 9 years since her last pelvic exam. She has been experiencing some lower abdominal cramping and burning for about 2 weeks. This is not constant, but she does notice it most of the time. She has been experiencing some burning with urination. She denies fever. When she is having the discomfort, she rates the discomfort at 3 out of 10. It is currently 0 out of 10. Review of Systems Weight has been stable.. She denies respiratory, cardiac and G.I. problems. She denies maltreatment or problems with falling. : she denies any significant problems with urinary leakage. Also see the HPI for other urinary symptoms. Past Medical History Past Medical History: Diabetes Mellitus, GERD/Reflux, Hyperlipidemia, Hypertension, Osteoarthritis (OA) Additional Past Medical History / Comment(s): Type 2 diabetes, IBS, arthritis of the neck. 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 History of Any Multi-Drug Resistant Organisms: None Reported Past Surgical History: Orthopedic Surgery, Tubal Ligation Additional Past Surgical History / Comment(s): Carpal tunnel surg. rosario , left hand surg., trigger finger surg. Colonoscopy 2016. Past Anesthesia/Blood Transfusion Reactions: No Reported Reaction Past Psychological History: Anxiety Smoking Status: Former smoker Past Alcohol Use History: None Reported Additional Past Alcohol Use History / Comment(s): quit smoking 2005, smoked 30 yrs. 1ppd Past Drug Use History: None Reported Additional History: She has been since 1965 and is no longer sexually active. She is retired. - Past Family History Father Family Medical History: Cancer (Lungs cancer) Additional Family Medical History / Comment(s): Lung cancer. Mother Family Medical History: Cancer Additional Family Medical History / Comment(s): Lungs cancer. Maternal grandmot her had some type of cancer but she is uncertain of the type. Medications and Allergies Home Medications Medication Instructions Recorded Confirmed Type Omeprazole [PriLOSEC] 20 mg PO HS 02/16/17 06/06/21 History Pioglitazone HCl [Actos] 30 mg PO HS 02/16/17 06/06/21 History Lisinopril [Zestril] 10 mg PO HS 11/03/20 08/24/21 History metFORMIN HCL [Glucophage] 1,000 mg PO BID 08/16/20 06/06/21 History Citalopram Hydrobromide [CeleXA] 40 mg PO HS 09/28/20 06/06/21 History hydroCHLOROthiazide 25 mg PO DAILY 09/28/20 06/06/21 History Atorvastatin [Lipitor] 10 mg PO HS 06/06/21 06/06/21 History Allergies Allergy/AdvReac Type Severity Reaction Status Date / Time No Known Allergies Allergy Verified 06/06/21 14:59 Exam Vital Signs Temp Pulse Resp BP Pulse Ox 06/06/21 15:02 99.0 F 96 18 119/67 96 Intake and Output 06/06/21 06/06/21 06/06/21 06:59 14:59 22:59 Other: Weight 89.358 kg Height 5 feet 1 inch, weight 197 pounds, BMI 37.2. This is a well-developed well-nourished white female who is alert and oriented times 3 in no acute distress. HEENT: Within normal limits. NECK: Supple without mass or thyromegaly. CHEST AND LUNGS: Clear to auscultation. HEART: Regular rate and rhythm. BREASTS: Are without mass or discharge. AXILLARY EXAM: Negative for adenopathy. BACK: Negative for CVA tenderness. ABDOMEN: Soft, mildly obese, nontender, without palpable masses. PELVIC EXAM: Normal external genitalia mild atrophy. Cervix and vagina appear normal with mild atrophy. There is no unusual discharge. There is no evidence of prolapse. The uterus is midposition, nongravid size and nontender. There are no palpable adnexal masses or tenderness. RECTAL EXAM: Rectovaginal exam is negative for mass or tenderness and is negative for occult blood. EXTREMITIES: Nontender. IMPRESSION: 1. 75-year-old menopausal female with normal gynecologic exam. 2. 2 week history of low abdominal and pelvic cramping and discomfort. No significant physical findings at this time. 3. Dysuria which may or may not be related to the abdominal and pelvic discomfort. PLAN: 1. Pap smear was performed. 2. Self breast awareness was discussed with the patient. Symptoms associated with inflammatory breast cancer were also discussed. 3. Screening mammogram is overdue since her last one was in 2017. The order slip was given to the patient for this. 4. Urine has been obtained for urinalysis and urine culture with sensitivities. 5. Pelvic ultrasound was recommended and the order slip was given to the patient for this. 6. She has completed her Covid vaccination series. 7. If the above workup is unremarkable, she will follow up with her primary care physician regarding abdominal pain. 8. The patient was advised to return in 1-2 years for her well woman examination and as needed.
[2021-06-06 18:31] LABS: Appearance,Urine Clear (Clear); Bilirubin,Urine Negative (Negative); Blood,Urine Negative (Negative); Color,Urine Yellow; Glucose,Urine (UA) Negative (Negative); Hyaline Casts,Urine 1 /lpf (0-2); Ketones,Urine Negative (Negative); Leukocyte Esterase,Urine Large (Negative); Mucus,Urine Rare /hpf; Nitrite,Urine Negative (Negative); Protein,Urine Negative (Negative); RBC,Urine 1 /hpf (0-5); Specific Gravity,Urine 1.019 (1.001-1.035); Squamous Epithelial Cell,Urine <1 /hpf (0-4); Urobilinogen,Urine <2.0 mg/dL (<2.0); WBC,Urine 20 /hpf (0-5)
--- NOTE | 2021-06-07 13:53 | P.PN ---
Progress Note - Text Progress Note Date: 06/07/21 OUTPATIENT FOLLOW-UP NOTE TEST(S)/RESULTS: Urinalysis done on 06/06/2021 shows large leukocyte esterase with many WBCs. METHOD OF NOTIFICATION: Patient was notified by phone. PATIENT COMMENTS: DIAGNOSIS: Cystitis UTI. DISCUSSION: She is also going to have a pelvic ultrasound and mammogram done in the near future. PLAN: Macrobid 1 by mouth twice a day 7 days. Await urine culture. Await pelvic ultrasound and mammogram-to be scheduled by the patient. The electronic prescription has been sent to [facility] pharmacy on .
== END ==
LOC: WWCWWP 14:49
PROVIDERS: ATTEND Obstetrics & Gynecology
DX: Z01.419 Encounter for gynecological examination (general) (routine) without abnormal findings (principal); E11.9 Type 2 diabetes mellitus without complications; F41.9 Anxiety disorder, unspecified; E78.5 Hyperlipidemia, unspecified; K21.9 Gastro-esophageal reflux disease without esophagitis; I10 Essential (primary) hypertension; M19.90 Unspecified osteoarthritis, unspecified site; Z87.891 Personal history of nicotine dependence; Z79.84 Long term (current) use of oral hypoglycemic drugs; Z79.899 Other long term (current) drug therapy
CPT/HCPCS: 81001; 87086

== ENCOUNTER → 2021-06-13 | Outpatient (CLI) | payer MEDICARE, BC ==
--- NOTE | 2021-06-15 10:11 | MM ---
Reason for exam: screening (asymptomatic). Last mammogram was performed 4 years and 3 months ago. History: Patient is postmenopausal. Physical Findings: A clinical breast exam by your physician is recommended on an annual basis and results should be correlated with mammographic findings. MG Screening Mammo w CAD Bilateral CC and MLO view(s) were taken. Prior study comparison: March 15, 2017, bilateral MG 3d screening mammo w/cad. The breast tissue is heterogeneously dense. This may lower the sensitivity of mammography. There is chronic nodularity in the right breast. Focal asymmetr left middle breast, stable. No significant changes when compared with prior studies. ASSESSMENT: Benign, BI-RAD 2 RECOMMENDATION: Routine screening mammogram of both breasts in 1 year.
== END | disposition home or self-care (01) ==
LOC: RADMAMWWP 14:30
PROVIDERS: ATTEND Obstetrics & Gynecology
DX: Z12.31 Encounter for screening mammogram for malignant neoplasm of breast (principal); Z78.0 Asymptomatic menopausal state
CPT/HCPCS: 77067

== ENCOUNTER → 2022-07-13 | Outpatient (CLI) | payer MEDICARE, BC ==
--- NOTE | 2022-07-16 08:53 | MM ---
Reason for Exam: Screening (asymptomatic). Last mammogram was performed 1 year(s) and 1 month(s) ago. Patient History: Menarche at age 12. First Full-Term at age 21. Postmenopausal. Patient has history of breast feeding. Risk Values: Denise 5 year model risk: 1.4%. NCI Lifetime model risk: 2.5%. Prior Study Comparison: 12/16/2007 Bilateral Screening Mammogram, [facility]. 01/11/2009 Bilateral Screening Mammogram, [facility]. 03/15/2017 Bilateral Screening Mammogram, [facility]. 06/13/2021 Bilateral Screening Mammogram, [facility]. Tissue Density: The breast tissue is heterogeneously dense. This may lower the sensitivity of mammography. Findings: Analyzed By CAD. There are few scattered small benign-appearing round and linear calcifications in the bilateral breasts redemonstrated. There is no suspicious group of microcalcifications or new suspicious mass in either breast. Overall Assessment: Benign, BI-RAD 2 Management: Screening Mammogram of both breasts in 1 year. A clinical breast exam by your physician is recommended on an annual basis and results should be correlated with mammographic findings. Electronically signed and approved by: Roddy Jarvis M.D.
== END | disposition home or self-care (01) ==
LOC: RADMAMWWP 13:48
PROVIDERS: ATTEND Family Medicine
DX: Z12.31 Encounter for screening mammogram for malignant neoplasm of breast (principal); Z78.0 Asymptomatic menopausal state
CPT/HCPCS: 77063; 77067

== ENCOUNTER 2022-11-02 09:50 | Emergency (ER) | payer MEDICARE, BC ==
--- NOTE | 2022-11-02 10:06 | ED ---
Recheck HPI - General Chief Complaint: Recheck/Abnormal Lab/Rx Stated Complaint: Abnormal labs Time Seen by Provider: 11/02/22 10:04 Source: patient, RN notes reviewed Mode of arrival: ambulatory Limitations: no limitations - History of Present Illness Initial Comments: 76-year-old female presenting to the emergency room at the direction of her primary care provider for laboratory results a hemoglobin of 6.7. She reports some increased shortness of breath with exertion worse than baseline, mild fatigue and feeling cold. She denies any chest pain, abdominal pain, nausea, vomiting, headache, dizziness, diaphoresis, fevers or chills she denies any tarry stools or other obvious sources of bleeding. She reports a history of anemia but is not currently taking any iron supplements or other agents to help increase her hemoglobin. She has a past medical history significant for diabetes, hypertension, hyperlipidemia, GERD, osteoarthritis, and irritable bowel syndrome. - Related Data Home Medications Medication Instructions Recorded Confirmed Omeprazole [PriLOSEC] 20 mg PO DAILY 02/16/17 11/02/22 Pioglitazone HCl [Actos] 30 mg PO DAILY 02/16/17 11/02/22 lisinopriL [Zestril] 10 mg PO DAILY 08/16/20 11/02/22 metFORMIN HCL [Glucophage] 1,000 mg PO BID 08/16/20 11/02/22 Citalopram Hydrobromide [CeleXA] 40 mg PO DAILY 09/28/20 11/02/22 hydroCHLOROthiazide 25 mg PO DAILY 09/28/20 11/02/22 Atorvastatin [Lipitor] 20 mg PO DAILY 11/02/22 11/02/22 Nitrofurantoin Monohyd/M-Cryst 100 mg PO BID 11/02/22 11/02/22 [Macrobid] Previous Rx's Medication Instructions Recorded Ferrous Sulfate [Feosol] 325 mg PO BID 30 Days #60 tab 11/02/22 Allergies Allergy/AdvReac Type Severity Reaction Status Date / Time No Known Allergies Allergy Verified 11/02/22 11:11 Review of Systems ROS Statement: Those systems with pertinent positive or pertinent negative responses have been documented in the HPI. ROS Other: All systems not noted in ROS Statement are negative. Past Medical History Past Medical History: Diabetes Mellitus, GERD/Reflux, Hyperlipidemia, Hypertension, Osteoarthritis (OA) Additional Past Medical History / Comment(s): IBS History of Any Multi-Drug Resistant Organisms: None Reported Past Surgical History: Orthopedic Surgery, Tubal Ligation Additional Past Surgical History / Comment(s): Carpal tunnel surg. rosario , left hand surg., trigger finger surg. Colonoscopy 2016. Past Anesthesia/Blood Transfusion Reactions: No Reported Reaction Past Psychological History: Anxiety Smoking Status: Former smoker Past Alcohol Use History: None Reported Past Drug Use History: None Reported - Past Family History Father Family Medical History: Cancer (Lungs cancer) Additional Family Medical History / Comment(s): Lung cancer. Mother Family Medical History: Cancer Additional Family Medical History / Comment(s): Lungs cancer. Maternal grandmother had some type of cancer but she is uncertain of the type. General Exam - General Exam Comments Initial Comments: GENERAL: No acute distress, well developed, well nourished. HEENT: Normocephalic, atraumatic. Pupils equal, round, reactive to light. Moist mucous membranes. LUNGS: No respiratory distress. Clear to auscultation, no adventitious sounds, no use of accessory muscles. HEART: Regular rate and rhythm, systolic murmur III/ without diastolic murmur, rub, or gallop. ABDOMEN: Normal bowel sounds. Soft, non-tender, non-distended. Digital rectal exam revealed no. Anal inflammation, good rectal tone. Noninflamed external hemorrhoids, no internal hemorrhoids, no tenderness. Brown stool obtained no evidence of bloody stools or melena. BACK: Normal inspection. EXTREMITIES: No edema. No tenderness. Moves all extremities. Bilateral lower extremity varicosities noted. NEUROLOGIC: Alert & oriented x 3. CN II-XII grossly intact. PSYCHIATRIC: Normal affect and behavior. DERMATOLOGIC: Skin intact, without rashes or lesions noted. Limitations: no limitations Course Vital Signs 11/02/22 11/02/22 11/02/22 09:53 10:48 13:48 Temperature 98.4 F Pulse Rate 89 76 Respiratory 20 18 Rate Blood Pressure 163/79 137/53 140/52 O2 Sat by Pulse 96 96 95 Oximetry 11/02/22 11/02/22 11/02/22 15:15 15:30 16:00 Temperature 98.7 F 97.9 F Pulse Rate 79 78 86 Respiratory 18 18 18 Rate Blood Pressure 138/76 124/57 106/67 O2 Sat by Pulse 97 Oximetry 11/02/22 17:00 Temperature Pulse Rate 80 Respiratory 18 Rate Blood Pressure 112/52 O2 Sat by Pulse 97 Oximetry Medical Decision Making - Medical Decision Making Was pt. sent in by a medical professional or institution (CYN Cabral, RHEUMATOLOGY SPECIALIST, urgent care, hospital, or usp...) When possible be specific @ -Primary care provider, Dr. Chaidez Did you speak to anyone other than the patient for history (EMS, parent, family, police, friend...)? What history was obtained from this source @ -No Did you review nursing and triage notes (agree or disagree)? Why? @ -I reviewed and agree with nursing and triage notes Were old charts reviewed (outside hosp., previous admission, EMS record, old EKG, old radiological studies, urgent care reports/EKG's, usp records)? Report findings @ -Previous laboratory studies. Differential Diagnosis (chest pain, altered mental status, abdominal pain women, abdominal pain men, vaginal bleeding, weakness, fever, dyspnea, syncope, headache, dizziness, GI bleed, back pain, seizure, CVA, palpatations, mental health)? @ -Differential anemia: Worsening secondary anemia, iron deficiency anemia, acute loss, esophageal varices, peptic ulcer disease, hemorrhoids, malignancy, Meckels diverticulum, this is not meant to be an all-inclusive list. EKG interpreted by me (3pts min.). @ -Sinus rhythm, ventricular rate 79 bpm, IA interval 186 ms, QRS duration 82 ms, QT/QTC 355/390 ms PRT axes 48, 29, 55 X-rays interpreted by me (1pt min.). @ -None done CT interpreted by me (1pt min.). @ -None done U/S interpreted by me (1pt. min.). @ -None done What testing was considered but not performed or refused? (CT, X-rays, U/S, labs)? Why? @ -None What meds were considered but not given or refused? Why? @ -None Did you discuss the management of the patient with other professionals (professionals i.e. , CYN, RHEUMATOLOGY SPECIALIST, lab, RT, psych nurse, hospice social worker, burlap bag sewer, teacher, border patrol officer, case hardener)? Give summary @ -Dr. Chaidez in regards to his recommendations for patient management in the setting of hemoglobin greater than 7 and most recent CBC previously on file from June 2022 at 9.5. Was smoking cessation discussed for >3mins.? @ -No Was critical care preformed (if so, how long)? @ -No Were there social determinants of health that impacted care today? How? (Homelessness, low income, unemployed, alcoholism, drug addiction, transportation, low edu. Level, literacy, decrease access to med. care, [facility], rehab)? @ -No Was there de-escalation of care discussed even if they declined (Discuss DNR or withdrawal of care, Hospice)? DNR status @ -No What co-morbidities impacted this encounter? (DM, HTN, Smoking, COPD, CAD, Cancer, CVA, ARF, Chemo, Hep., AIDS, mental health diagnosis, sleep apnea, morbid obesity)? @ -None Was patient admitted / discharged? Hospital course, mention meds given and route, prescriptions, significant lab abnormalities, going to OR and other pertinent info. @ -76-year-old female presenting to the emergency room at the direction of her primary care provider due to severe anemia on most recent routine laboratory studies. Mild dyspnea with exertion, fatigue and cold feeling otherwise no other symptoms of anemia. Will obtain CBC, coag, iron panel along with type and cross and EKG. If hemoglobin continues to be below 7 will plan for transfusion. No indication for other diagnostic imaging at this time. Repeat laboratory studies revealed a CBC of 7.3, normal coag's and normal fibrinogen. EKG demonstrates sinus rhythm. Results discussed with patient, family and patient's primary care provider Dr. Chaidez. Dr. Chaidez recommends transfusion of 1 unit of packed red blood cells to achieve a hemoglobin greater than 8 to allow for adequate symptomatic management while awaiting further outpatient workup to determine etiology of anemia. Patient agreeable to transfusion. Will type and cross and transfuse 1 unit of packed red blood cells. Tolerated transfusion of packed red blood cells well. As indicated above further workup for underlying etiology of anemia to be completed by primary care provider. No indication for further laboratory studies or diagnostic imaging. Will discharge home in stable condition on oral iron supplement with follow-up with her primary care provider. Undiagnosed new problem with uncertain prognosis? @ -No Drug Therapy requiring intensive monitoring for toxicity (Heparin, Nitro, Insulin, Cardizem)? @ -No Were any procedures done? @ -No Diagnosis/symptom? @ -Symptomatic anemia Acute, or Chronic, or Acute on Chronic? @ -Acute Uncomplicated (without systemic symptoms) or Complicated (systemic symptoms)? @ -Uncomplicated Side effects of treatment? @ -No Exacerbation, Progression, or Severe Exacerbation? @ -No Poses a threat to life or bodily function? How? (Chest pain, [place], [place], pneumonia, PE, COPD, DKA, ARF, appy, cholecystitis, CVA, Diverticulitis, Homicidal, Suicidal, threat to staff... and all critical care pts) @ -No Case discussed with Dr. Li - Lab Data Result diagrams: 11/02/22 10:15 Lab Results 11/02/22 11/02/22 11/02/22 Range/Units 10:15 10:15 10:15 WBC 4.4 (3.8-10.6) k/uL RBC 2.83 L (3.80-5.40) m/uL Hgb 7.3 L (11.4-16.0) gm/dL Hct 23.3 L (34.0-46.0) % MCV 82.4 (80.0-100.0) fL MCH 25.9 (25.0-35.0) pg MCHC 31.4 (31.0-37.0) g/dL RDW 13.7 (11.5-15.5) % Plt Count 339 (150-450) k/uL MPV 7.7 Neutrophils % 56 % Lymphocytes % 26 % Monocytes % 10 % Eosinophils % 4 % Basophils % 0 % Neutrophils # 2.5 (1.3-7.7) k/uL Lymphocytes # 1.1 (1.0-4.8) k/uL Monocytes # 0.4 (0-1.0) k/uL Eosinophils # 0.2 (0-0.7) k/uL Basophils # 0.0 (0-0.2) k/uL Hypochromasia Slight PT 10.5 (9.0-12.0) sec INR 1.0 (<1.2) APTT 23.3 (22.0-30.0) sec Fibrinogen 355 (200-500) mg/dL Iron (50-170) ug/dL TIBC (228-460) ug/dL % Saturation (12.00-45.00) Transferrin (204.0-354.0) mg/dL Stool Occult Blood (Negative) Blood Type Blood Type Confirm A Positive Blood Type Recheck Bld Type Recheck Status Antibody Screen Crossmatch Spec Expiration Date 11/02/22 11/02/22 11/02/22 Range/Units 10:27 11:55 13:39 WBC (3.8-10.6) k/uL RBC (3.80-5.40) m/uL Hgb (11.4-16.0) gm/dL Hct (34.0-46.0) % MCV (80.0-100.0) fL MCH (25.0-35.0) pg MCHC (31.0-37.0) g/dL RDW (11.5-15.5) % Plt Count (150-450) k/uL MPV Neutrophils % % Lymphocytes % % Monocytes % % Eosinophils % % Basophils % % Neutrophils # (1.3-7.7) k/uL Lymphocytes # (1.0-4.8) k/uL Monocytes # (0-1.0) k/uL Eosinophils # (0-0.7) k/uL Basophils # (0-0.2) k/uL Hypochromasia PT (9.0-12.0) sec INR (<1.2) APTT (22.0-30.0) sec Fibrinogen (200-500) mg/dL Iron 14 L (50-170) ug/dL TIBC 507 H (228-460) ug/dL % Saturation 2.82 L (12.00-45.00) Transferrin 362.0 H (204.0-354.0) mg/dL Stool Occult Blood Negative (Negative) Blood Type A Positive Blood Type Confirm Blood Type Recheck No Previous Record Bld Type Recheck Status CABO Indicated Antibody Screen NEGATIVE Crossmatch See Detail Spec Expiration Date 11/05/2022 - 2338 Disposition Clinical Impression: Symptomatic anemia Disposition: HOME SELF-CARE Condition: Stable Instructions (If sedation given, give patient instructions): Anemia (ED) Additional Instructions: Please follow-up with your primary care provider. Please start oral iron supplement daily. Iron supplement may change the color of your stool to a tarry or nature. If constipation occurs with addition of iron similar please add [id number] stool softener as needed. Please return to the Emergency Department if symptoms worsen or any other concerns. Prescriptions: Ferrous Sulfate [Feosol] 325 mg PO BID 30 Days #60 tab Is patient prescribed a controlled substance at d/c from ED?: No Referrals: Tang Chaidez MD [Primary Care Provider] - 1-2 days Time of Disposition: 17:15
[2022-11-02 10:32] LABS: Basophils % (A) 0 %; Eosinophils # (A) 0.2 k/uL (0-0.7); Eosinophils % (A) 4 %; HCT 23.3 % (34.0-46.0); HGB 7.3 gm/dL (11.4-16.0); Hypochromasia Slight; Lymphocytes # (A) 1.1 k/uL (1.0-4.8); Lymphocytes % (A) 26 %; MCH 25.9 pg (25.0-35.0); MCHC 31.4 g/dL (31.0-37.0); MCV 82.4 fL (80.0-100.0); Mean Platelet Volume 7.7; Monocytes # (A) 0.4 k/uL (0-1.0); Monocytes % (A) 10 %; Neutrophils # (A) 2.5 k/uL (1.3-7.7); Neutrophils % (A) 56 %; Platelet Count 339 k/uL (150-450); RBC 2.83 m/uL (3.80-5.40); RDW 13.7 % (11.5-15.5); WBC 4.4 k/uL (3.8-10.6)
[2022-11-02 10:40] LABS: Partial Thromboplastin Time 23.3 sec (22.0-30.0); Prothrombin Time 10.5 sec (9.0-12.0)
[2022-11-02 10:49] VITALS: RESP 18
[2022-11-02 15:32] VITALS: TEMP 97.9
[2022-11-02 16:43] LABS: % Iron Saturation 2.82 (12.00-45.00)
[2022-11-02 17:24] VITALS: BP 112/52; PULSE 80
== END 2022-11-02 17:29 | disposition home or self-care (01) ==
LOC: EC 09:50
DX: D64.9 Anemia, unspecified (principal); E11.9 Type 2 diabetes mellitus without complications; K21.9 Gastro-esophageal reflux disease without esophagitis; E78.5 Hyperlipidemia, unspecified; I10 Essential (primary) hypertension; M19.90 Unspecified osteoarthritis, unspecified site; F41.9 Anxiety disorder, unspecified; Z87.891 Personal history of nicotine dependence; Z79.84 Long term (current) use of oral hypoglycemic drugs; Z79.899 Other long term (current) drug therapy
CPT/HCPCS: 99285 ×2; 36415; 93005; 86900; 86901; 83540; 83550; 85025; 85384; 85610; 85730; 86850; 86920; 82272; 36430; P9016

== ENCOUNTER 2023-02-13 07:29 | Day surgery (SDC) | payer MEDICARE, BC ==
[2023-02-08 11:26] VITALS: BMI 36.6
[~2023-02-13 07:29] MED LIST changes: -ALPRAZolam 0.25 MG TAB PO PRN; -ALPRAZolam 0.5 MG TAB PO PRN; -ASPIRIN 325 MG TAB PO STA; +LACTATED RINGERS 1,000 ML IV SCH; -NITROGLYCERIN SL TABS 0.4 MG TAB SUBLINGUAL PRN; -SODIUM CHLORIDE 0.9% 1,000 ML in EMPTY BAG 1 BAG IV ONE
[2023-02-13 07:56] VITALS: TEMP 97.4
[2023-02-13 08:03] LABS: Glucose,Whole Blood 128 mg/dL (70-110)
[2023-02-13] MEDS ORDERED: PROPOFOL 10 MG/ML 20 ML VIAL IV ONE (08:04)
[2023-02-13] MEDS ORDERED: LIDOCAINE 2% INJ 20 MG/ML (2 ML VIAL) ONE (08:04)
--- NOTE | 2023-02-13 08:10 | P.GSHP ---
History of Present Illness H&P Date: 02/13/23 CHIEF COMPLAINT: Anemia HISTORY OF PRESENT ILLNESS: The patient is a 77-year-old female who presents with anemia. Upper and lower endoscopy were offered for further evaluation and management. PAST MEDICAL HISTORY: Please see list. PAST SURGICAL HISTORY: Please see list. MEDICATIONS: Please see list. ALLERGIES: Please see list. SOCIAL HISTORY: No illicit drug use FAMILY HISTORY: No reports of Crohn disease or ulcerative colitis. REVIEW OF ORGAN SYSTEMS: CONSTITUTIONAL: No reports of fevers or chills. GI: Denies any blood in stools or constipation. PHYSICAL EXAM: VITAL SIGNS: Stable GENERAL: Well-developed pleasant in no acute distress. HEENT: No scleral icterus. Extraocular movements grossly intact. Moist buccal mucosa. NECK: Supple without lymphadenopathy. CHEST: Unlabored respirations. Equal bilateral excursions. CARDIOVASCULAR: Regular rate and rhythm. Distal 2+ pulses. ABDOMEN: Soft, nondistended. MUSCULOSKELETAL: No clubbing, cyanosis, or edema. ASSESSMENT: 1. Anemia PLAN: 1. Recommend proceeding with an upper and lower endoscopy Past Medical History Past Medical History: Diabetes Mellitus, GERD/Reflux, Hyperlipidemia, Hypertension, Osteoarthritis (OA) Additional Past Medical History / Comment(s): IBS, ANEMIA-HAD 1 UNIT PRBC 11/02/22 FOR HGB 7.34 History of Any Multi-Drug Resistant Organisms: None Reported Past Surgical History: Orthopedic Surgery, Tubal Ligation Additional Past Surgical History / Comment(s): Carpal tunnel surg. rosario , left hand surg., trigger finger surg. Colonoscopy 2016. Past Anesthesia/Blood Transfusion Reactions: No Reported Reaction Smoking Status: Former smoker - Past Family History Father Family Medical History: Cancer Additional Family Medical History / Comment(s): Lung cancer. Mother Family Medical History: Cancer Additional Family Medical History / Comment(s): Lungs cancer. Maternal grandmother had some type of cancer but she is uncertain of the type. Medications and Allergies Home Medications Medication Instructions Recorded Confirmed Type Omeprazole [PriLOSEC] 20 mg PO DAILY 02/16/17 02/13/23 History Pioglitazone HCl [Actos] 30 mg PO DAILY 02/16/17 02/13/23 History lisinopriL [Zestril] 10 mg PO DAILY 08/16/20 02/13/23 History metFORMIN HCL [Glucophage] 1,000 mg PO BID 08/16/20 02/13/23 History Citalopram Hydrobromide [CeleXA] 40 mg PO DAILY 09/28/20 02/13/23 History hydroCHLOROthiazide 25 mg PO DAILY 09/28/20 02/13/23 History Atorvastatin [Lipitor] 20 mg PO DAILY 11/02/22 02/13/23 History Ferrous Sulfate [Feosol] 325 mg PO BID 30 Days #60 tab 11/02/22 02/08/23 Rx Allergies Allergy/AdvReac Type Severity Reaction Status Date / Time No Known Allergies Allergy Verified 02/13/23 07:49 Surgical - Exam Vital Signs Temp Pulse Resp BP Pulse Ox 97.4 F L 98 18 150/67 97 02/13/23 07:55 02/13/23 07:55 02/13/23 07:55 02/13/23 07:55 02/13/23 07:55 Results - Labs Abnormal Lab Results - Last 24 Hours (Table) 02/13/23 Range/Units 08:00 POC Glucose (mg/dL) 128 H (70-110) mg/dL
--- NOTE | 2023-02-13 08:18 | P.PCN ---
Date of Procedure: 02/13/23 Description of Procedure: PREOPERATIVE DIAGNOSIS: Anemia Gastroesophageal reflux disease. Morbid obesity. POSTOPERATIVE DIAGNOSIS: Gastroesophageal reflux disease. Morbid obesity. Gastritis. Diaphragmatic hiatal hernia, paraesophageal OPERATION: Esophagogastroduodenoscopy with biopsies along antrum, duodenum SURGEON: Annette Lizarraga MD ANESTHESIA: MAC. INDICATIONS: The patient is a 44-year-old female who presents with reflux disease. Benefits and risks of the procedure were described. Informed consent was obtained. DESCRIPTION: The patient was brought into the endoscopy suite and laid in the left lateral decubitus position. An Olympus gastroscope was passed along the posterior oropharynx down to the distal esophagus where the squamocolumnar junction was encountered at 33 cm from the incisors. The stomach was entered and no bile reflux was found. Additional findings are listed below. Biopsies with cold forceps were obtained of the antrum. The first through third portion of the duodenum was examined. Retroflexion of the scope confirmed Hill grade 4 lower esophageal valve. The squamocolumnar junction demonstrated LA grade B erosive esophagitis. The stomach was desufflated. The patient tolerated the procedure well. FINDINGS: Squamocolumnar junction 33 cm from the incisors. Diaphragmatic hiatus at 37 cm. Hiatal hernia, 4 cm, paraesophageal Hill grade 4 lower esophageal valve. LA grade B erosive esophagitis. Biopsies of the duodenum Chronic gastric ulcerations from sliding hiatal hernia Chronic gastritis RECOMMENDATIONS: Recommend repair of diaphragmatic hiatal hernia due to symptomatic anemia
[2023-02-13 08:57] VITALS: BP 112/75; PULSE 70; RESP 18
--- NOTE | 2023-02-13 09:16 | P.PCN ---
Date of Procedure: 02/13/23 Description of Procedure: PREOPERATIVE DIAGNOSIS: Anemia POSTOPERATIVE DIAGNOSIS: Tubular adenoma sigmoid colon Sigmoid diverticulosis, severe Internal hemorrhoids, grade 2 OPERATION: Colonoscopy to the ileocecal valve and appendiceal orifice, cecum Colonoscopy with cold forceps biopsy SURGEON: Annette Lizarraga MD. ANESTHESIA: MAC. INDICATIONS: The patient is an 77-year-old female who presents with anemia. Benefits and risks were described and informed consent was obtained. DESCRIPTION OF PROCEDURE: The patient had undergone Sutab prep. The patient had been brought into the operating room and laid in the left lateral decubitus position. After adequate intravenous sedation, the rectum was examined with 2% lidocaine jelly. External hemorrhoids were encountered. The rectal tone was within normal limits. No lesions were palpated in the rectal vault. An Olympus colonoscope was advanced until the cecum, ileocecal valve and appendiceal orifice were clearly viewed. The prep was excellent. Sigmoid diverticulosis, moderate to severe, was encountered. Colonic polyps were found and removed. No evidence of focal colitis was found. Retroflexion of the scope demonstrated grade 3 internal hemorrhoids without active bleeding or inflammation. The colon was desufflated. The patient had tolerated the procedure well. Withdrawal time was over 6 minutes. FINDINGS: Aronchick preparation quality scale 1 (1-5) Internal hemorrhoids, grade 3 External hemorrhoids, grade 3 No arteriovenous malformations. Sigmoid diverticulosis, moderate to severe Removal of 2 polyps: - Cold forceps biopsy at 20 cm from the anal verge 2, 3 to 4 mm polyp. - Cold forceps biopsy at 40 cm from the anal verge, 5 mm polyp. - Cold forceps biopsy at 45 cm from the anal verge, 4 mm polyp. - Cold forceps biopsy at 55 cm from the anal verge, 3 mm polyp. - Cold forceps biopsy at 60 cm from the anal verge, 4 mm polyp. - Cold forceps biopsy at 65 cm from the anal verge, 3 mm polyp. - Cold forceps biopsy at 75 cm from the anal verge, 4 mm polyp. - Cold forceps biopsy at mid transverse colon, 5 mm polyp. - Cold forceps biopsy at proximal transverse colon, 4 mm polyp. No focal colitis. RECOMMENDATIONS: Repeat in 5 years, 2027 Plan - Discharge Summary Discharge Rx Participant: No New Discharge Prescriptions: New Omeprazole [PriLOSEC] 40 mg PO DAILY #14 cap Continue Pioglitazone HCl [Actos] 30 mg PO DAILY metFORMIN HCL [Glucophage] 1,000 mg PO BID lisinopriL [Zestril] 10 mg PO DAILY Citalopram Hydrobromide [CeleXA] 40 mg PO DAILY hydroCHLOROthiazide 25 mg PO DAILY Ferrous Sulfate [Feosol] 325 mg PO BID 30 Days #60 tab Atorvastatin [Lipitor] 20 mg PO DAILY Discontinued Omeprazole [PriLOSEC] 20 mg PO DAILY Discharge Medication List Pioglitazone HCl [Actos] 30 mg PO DAILY 02/16/17 [History] lisinopriL [Zestril] 10 mg PO DAILY 08/16/20 [History] metFORMIN HCL [Glucophage] 1,000 mg PO BID 08/16/20 [History] Citalopram Hydrobromide [CeleXA] 40 mg PO DAILY 09/28/20 [History] hydroCHLOROthiazide 25 mg PO DAILY 09/28/20 [History] Atorvastatin [Lipitor] 20 mg PO DAILY 11/02/22 [History] Ferrous Sulfate [Feosol] 325 mg PO BID 30 Days #60 tab 11/02/22 [Rx] Omeprazole [PriLOSEC] 40 mg PO DAILY #14 cap 02/13/23 [Rx] Follow up Appointment(s)/Referral(s): Annette Lizarraga MD [STAFF PHYSICIAN] - 04/09/23 3:30 pm Patient Instructions/Handouts: *Surgery [facility] - (Anesthesia) Discharge Instructions Outpatient Surgery, Hemorrhoids (ED), Diverticulosis (GEN), Colorectal Polyps (GEN), Diverticulosis Diet (GEN) Activity/Diet/Wound Care/Special Instructions: Repeat colonoscopy in 5 years, 2027
== END 2023-02-13 09:37 | disposition home or self-care (01) ==
LOC: ORWHC2ENDO 07:29
PROVIDERS: ATTEND Surgery Plastic and Reconstructive Surgery
DX: K29.50 Unspecified chronic gastritis without bleeding (principal); D12.5 Benign neoplasm of sigmoid colon; K44.9 Diaphragmatic hernia without obstruction or gangrene; K21.00 Gastro-esophageal reflux disease with esophagitis, without bleeding; K57.30 Diverticulosis of large intestine without perforation or abscess without bleeding; K64.1 Second degree hemorrhoids; E66.01 Morbid (severe) obesity due to excess calories; D64.9 Anemia, unspecified; E11.9 Type 2 diabetes mellitus without complications; K21.9 Gastro-esophageal reflux disease without esophagitis; E78.5 Hyperlipidemia, unspecified; I10 Essential (primary) hypertension; M19.90 Unspecified osteoarthritis, unspecified site; K58.9 Irritable bowel syndrome, unspecified; Z87.891 Personal history of nicotine dependence; Z80.1 Family history of malignant neoplasm of trachea, bronchus and lung; Z79.84 Long term (current) use of oral hypoglycemic drugs
CPT/HCPCS: 88305; 45380; 43239; J2704; J2001

== ENCOUNTER → 2023-04-30 | Outpatient (CLI) | payer MEDICARE, BC ==
--- NOTE | 2023-04-30 15:16 | US ---
EXAMINATION TYPE: US abdomen complete DATE OF EXAM: 04/30/2023 COMPARISON: NONE CLINICAL INDICATION: Female, 77 years old with history of R94.4 ABNORMAL RESULTS OF KIDNEY FUNCTION S TUDIES; TECHNIQUE: Multiple sonographic images of the abdomen are obtained. FINDINGS: EXAM MEASUREMENTS: Liver Length: 15.4 cm Gallbladder Wall: 0.2 cm CBD: 0.4 cm Spleen: 9.1 cm Right Kidney: 10.8 x 4.4 x 4.8 cm Left Kidney: 10.6 x 5.0 x 4.6 cm Pancreas: visualized portions wnl, limited by overlying midline bowel gas. The pancreatic tail is ob scured by bowel gas. Liver: scanned intercostally, course, mildly heterogeneous Gallbladder: 1.9cm mobile shadowing stone. No abnormal gallbladder distention, wall thickening, or s urrounding fluid. Evidence for sonographic Cho's sign: no CBD: visualized portions wnl, limited by overlying bowel gas Spleen: visualized portions wnl, limited by overlying bowel gas Right Kidney: wnl Left Kidney: wnl Upper IVC: wnl Abd Aorta: visualized portions wnl, limited by overlying midline bowel gas IMPRESSION: 1. Exam limitations as above. Slightly heterogeneous liver parenchyma may be on a technical basis or could reflect underlying nonspecific hepatocellular disease. 2. Cholelithiasis. No ancillary findings of acute cholecystitis. 3. No biliary ductal dilatation.
== END | disposition home or self-care (01) ==
LOC: RADUSWWP 09:05
PROVIDERS: ATTEND Family Medicine
DX: K80.20 Calculus of gallbladder without cholecystitis without obstruction (principal); R94.4 Abnormal results of kidney function studies
CPT/HCPCS: 76700

== ENCOUNTER → 2024-09-21 | Outpatient (CLI) | payer MEDICARE, BC ==
--- NOTE | 2024-09-21 22:05 | MM ---
Reason for Exam: Screening (asymptomatic). Last mammogram was performed 2 year(s) and 3 month(s) ago. Patient History: Menarche at age 12. First Full-Term at age 21. Postmenopausal. Patient has history of breast feeding. Maternal grandmother had ovarian cancer, age 80. Risk Values: Denise 5 year model risk: 1.3%. NCI Lifetime model risk: 2.1%. Prior Study Comparison: 03/15/2017 Bilateral Screening Mammogram, [facility]. 06/13/2021 Bilateral Screening Mammogram, [facility]. 07/13/2022 Bilateral MG 3D screening mammo w/cad, [facility]. Tissue Density: There are scattered areas of fibroglandular density. Findings: Analyzed By CAD. The pattern is symmetrical. Chronic nodularity is within the right breast. Benign scattered calcifications are present bilaterally No suspicious groups of microcalcifications, spiculated or lobular masses, architectural distortion or other secondary signs of malignancy are mammographically apparent. Overall Assessment: Benign, BI-RAD 2 Management: Screening Mammogram of both breasts in 1 year. A negative mammogram report should not preclude additional follow up of suspicious palpable abnormalities. Patient should continue monthly self breast exam. A clinical breast exam by your physician is recommended on an annual basis and results should be correlated with mammographic findings. Note on Denise scores and lifetime risk: 1. A Denise score greater than 3% is considered moderate risk. If this is the case, consider specialist referral to assess eligibility for a risk reducing agent. 2. If overall lifetime risk for the development of breast cancer is 20% or higher, the patient may qualify for future screening with alternating mammogram and breast MRI. [facility], , 09/21/2024 10:02 PM. Electronically signed and approved by: Mati Naidu D.O. Radiologis
== END | disposition home or self-care (01) ==
LOC: RADMAMWWP 15:54
PROVIDERS: ATTEND Family Medicine
DX: Z12.31 Encounter for screening mammogram for malignant neoplasm of breast (principal); Z78.0 Asymptomatic menopausal state; R92.323 Mammographic fibroglandular density, bilateral breasts
CPT/HCPCS: 77063; 77067